=== PATIENT | female | born 1985 | race American Indian/Alaskan Native ===

== ENCOUNTER 2018-04-25 09:44 | Emergency (ER) | payer MEDICAID ==
[~2018-04-25] VITALS: Ht 160 cm; Wt 86.2 kg
[~2018-04-25 09:44] MED LIST: BUSP15TA14 PO; DICY10CA88 PO; HYDR-4383 PO; HYDR1TAB69 PO; IBUP-1985 PO; ONDA4TAB6 PO; ONDA8TAB13 PO
[2018-04-25] MEDS ORDERED: haloperidol 5mg tablet PO ONE (10:00)
[2018-04-25] MEDS ORDERED: LORazepam 1 MG tablet PO ONE ×2 (10:00→19:35)
[2018-04-25] MEDS: benztropine 1mg tablet PO SCH (10:05)
[2018-04-25 10:27] LABS: BASOPHILS % (AUTO) 0.4 % (0-1); EOSINOPHILS # (AUTO) 0.2 X10'3 (0-0.9); EOSINOPHILS % (AUTO) 2.5 % (0-6); HEMATOCRIT 42.8 % (35.0-45.0); HEMOGLOBIN 14.5 g/dl (12.0-16.0); LYMPHOCYTES # (AUTO) 1.6 X10'3 (1.1-4.8); LYMPHOCYTES % (AUTO) 22.2 % (21-51); MEAN CORPUSCULAR HEMOGLOBIN 29.2 PG (27.0-31.0); MEAN CORPUSCULAR VOLUME 86.1 FL (78-98); MEAN PLATELET VOLUME 7.7 FL (7.4-10.4); MONOCYTES # (AUTO) 0.5 X10'3 (0-0.9); MONOCYTES % (AUTO) 6.6 % (2-12); NEUTROPHILS # (AUTO) 4.8 X10'3 (1.8-7.7); NEUTROPHILS % (AUTO) 68.3 % (42-75); PLATELET COUNT 259 X10'3 (140-440); RED BLOOD COUNT 4.97 X10'6 (4.20-5.60); RED CELL DISTRIBUTION WIDTH 15.1 % (11.5-14.5)
[2018-04-25 10:29] LABS: URINE HCG NEGATIVE (NEG)
[2018-04-25 10:46] LABS: URINE AMPHETAMINE SCREEN POSITIVE (Neg); URINE BARBITUATE SCREEN NEGATIVE (Neg); URINE BENZODIAZEPINES SCREEN POSITIVE (Neg); URINE CANNABINOID SCREEN NEGATIVE (Neg); URINE COCAINE SCREEN NEGATIVE (Neg); URINE METHADONE SCREEN NEGATIVE (Neg); URINE OPIATE SCREEN NEGATIVE (Neg); URINE PHENCYCLIDINE SCREEN NEGATIVE (Neg)
[2018-04-25 10:49] LABS: ALANINE AMINOTRANSFERASE 130 U/L (12-78); ALBUMIN 3.6 G/DL (3.4-5.0); ALKALINE PHOSPHATASE 89 IU/L (46-116); ANION GAP 9 (8-16); ASPARTATE AMINO TRANSFERASE 111 U/L (10-37); BILIRUBIN,TOTAL 0.5 MG/DL (0.1-1.0); BLOOD UREA NITROGEN 12 MG/DL (7-18); BUN/CREATININE RATIO 18.2 (6.6-38.0); CALCIUM 8.5 MG/DL (8.5-10.1); CHLORIDE 102 MMOL/L (99-107); CREATININE 0.66 MG/DL (0.40-0.90); GLUCOSE 68 MG/DL (70-104); POTASSIUM 3.6 MMOL/L (3.5-5.1); SODIUM 138 MMOL/L (135-145); TOTAL CARBON DIOXIDE 27.4 MMOL/L (24-32); TOTAL PROTEIN 7.3 G/DL (6.4-8.2); eGFR > 90 ML/MIN
[2018-04-25 10:50] LABS: ETHANOL < 0.010 GM/DL (0.0-0.010)
[2018-04-25] MEDS ORDERED: OLAN5TAB3 PO (11:09)
[2018-04-25] MEDS ORDERED: LORA0.5T PO (11:09)
[2018-04-25] MEDS ORDERED: DIAZ5TAB PO (11:09)
[2018-04-25] MEDS ORDERED: OLANZapine 2.5MG tablet PO STA (19:32)
[2018-04-25 20:42] LABS: CLARITY,URINE TURBID (Clear); COLOR,URINE YELLOW (Yellow); GLUCOSE, URINE 100 mg/dl (Neg); KETONES,URINE 40 mg/dl (Neg); LEUKOCYTE ESTERASE ,URINE NEGATIVE (Neg); NITRITES, URINE NEGATIVE (Neg); OCCULT BLOOD,URINE TRACE-INTACT (Neg); PROTEIN,URINE NEGATIVE (Neg)
[2018-04-25 20:44] LABS: UA COLLECTION TYPE CLN CATCH MIDSTREAM
[2018-04-25 20:59] LABS: BACTERIA,URINE NONE SEEN /HPF (Neg); RBC,URINE 0-2 /HPF (0-2); WBC,URINE 0-4 /HPF (0-4)
[2018-04-25 21:00] LABS: AMORPHOUS URATES 3+; MUCUS STRANDS NONE SEEN /LPF (Neg); SQUAMOUS EPITHELIAL CELL,UR FEW /LPF (FEW)
[2018-04-26] MEDS ORDERED: diphenhydrAMINE 25mg capsule PO ONE (09:05)
[2018-04-26] MEDS ORDERED: haloperidol 5mg tablet PO ONE (09:05)
[2018-04-26] MEDS ORDERED: LORazepam 1 MG tablet PO ONE (09:10)
[2018-04-26] MEDS: benztropine 1mg tablet PO SCH (10:22)
[2018-04-26 10:29] VITALS: BP 103/68
== END 2018-04-26 11:44 ==
LOC: ER 09:44
DX: F31.89 Other bipolar disorder (principal); F28 Other psychotic disorder not due to a substance or known physiological condition; R45.851 Suicidal ideations; R45.1 Restlessness and agitation; G89.29 Other chronic pain; F15.90 Other stimulant use, unspecified, uncomplicated; Z88.8 Allergy status to other drugs, medicaments and biological substances
CPT/HCPCS: 36415; 80053; 80305; 80320; 81001; 81025; 84443; 85025; 99285; Q0163

== ENCOUNTER 2019-12-18 11:47 | Emergency (ER) | payer MEDICAID ==
[~2019-12-18] VITALS: Ht 160 cm; Wt 83.3 kg
[~2019-12-18 11:47] MED LIST changes: -BUSP15TA14 PO; +DIAZ5TAB PO; -DICY10CA88 PO; -HYDR-4383 PO; -HYDR1TAB69 PO; -IBUP-1985 PO; +LORA0.5T PO; +OLAN5TAB3 PO; -ONDA4TAB6 PO; -ONDA8TAB13 PO
--- NOTE | 2019-12-18 12:40 | NUR ---
PT ASKED "CAN YOU FIND ME A PLACE TO STAY?" PROVIDED [employer] DOCUMENT AND RECOMMENDED PT GO TO [facility] BEFORE 1700 TODAY FOR MEAL AND POSSIBLE LODGINGS.
[2019-12-18] MEDS ORDERED: IBUP-1986 PO (13:29)
[2019-12-18] MEDS ORDERED: ONDA4TAB6 PO (13:29)
[2019-12-18 13:39] VITALS: BP 112/73
== END 2019-12-18 13:41 | disposition home or self-care (01) ==
LOC: ER 11:48
DX: M54.6 Pain in thoracic spine (principal); R11.0 Nausea; G89.29 Other chronic pain; F31.9 Bipolar disorder, unspecified; F17.200 Nicotine dependence, unspecified, uncomplicated; F12.90 Cannabis use, unspecified, uncomplicated; F15.90 Other stimulant use, unspecified, uncomplicated; Z72.89 Other problems related to lifestyle; Z88.8 Allergy status to other drugs, medicaments and biological substances; Z79.899 Other long term (current) drug therapy
CPT/HCPCS: 99283

== ENCOUNTER 2019-12-20 00:18 | Emergency (ER) | payer MEDICAID ==
[~2019-12-20] VITALS: Ht 160 cm; Wt 80.0 kg
[~2019-12-20 00:18] MED LIST changes: +IBUP-1986 PO; +ONDA4TAB6 PO
[2019-12-20 00:36] VITALS: BP 120/84
[2019-12-20] MEDS ORDERED: ondansetron 4mg rapidly disintigrating tab PO ONE (01:00)
== END 2019-12-20 01:19 | disposition home or self-care (01) ==
LOC: ER 00:18
DX: R11.0 Nausea (principal); R44.3 Hallucinations, unspecified; G89.29 Other chronic pain; F31.9 Bipolar disorder, unspecified; F12.90 Cannabis use, unspecified, uncomplicated; F15.90 Other stimulant use, unspecified, uncomplicated; F11.90 Opioid use, unspecified, uncomplicated; Z88.8 Allergy status to other drugs, medicaments and biological substances; Z79.899 Other long term (current) drug therapy
CPT/HCPCS: 99283

== ENCOUNTER 2019-12-21 15:59 | Emergency (ER) | payer MEDICAID ==
[~2019-12-21] VITALS: Ht 160 cm; Wt 80.0 kg
[2019-12-21] MEDS ORDERED: ondansetron 4mg rapidly disintigrating tab PO ONE (16:55)
[2019-12-21] MEDS ORDERED: ketorolac trometh. 30mg/ml inj. IM ONE (16:55)
[2019-12-21 17:32] VITALS: BP 116/85
== END 2019-12-21 17:30 | disposition home or self-care (01) ==
LOC: ER 16:00
DX: R11.0 Nausea (principal); G89.29 Other chronic pain; M54.9 Dorsalgia, unspecified; F31.9 Bipolar disorder, unspecified; F12.90 Cannabis use, unspecified, uncomplicated; F15.90 Other stimulant use, unspecified, uncomplicated; F11.90 Opioid use, unspecified, uncomplicated; Z88.8 Allergy status to other drugs, medicaments and biological substances; Z79.899 Other long term (current) drug therapy
CPT/HCPCS: 96372; 99284; J1885

== ENCOUNTER 2021-12-11 00:08 | Inpatient (IN) | payer MEDICAID ==
[~2021-12-11] VITALS: Ht 160 cm; Wt 72.9 kg
[~2021-12-11 00:08] MED LIST changes: +NO HOME MEDS
[2021-12-11] MEDS ORDERED: NO HOME MEDS (00:54)
[2021-12-11 01:12] LABS: BASOPHILS % (AUTO) 0.8 % (0-1); EOSINOPHILS % (AUTO) 1.8 % (0-6); HEMATOCRIT 38.4 % (35.0-45.0); HEMOGLOBIN 13.1 g/dl (12.0-16.0); LYMPHOCYTES # (AUTO) 3.5 X10'3 (1.1-4.8); LYMPHOCYTES % (AUTO) 38.9 % (21-51); MEAN CORPUSCULAR HEMOGLOBIN 28.8 PG (27.0-31.0); MEAN CORPUSCULAR HGB CONC 34.1 g/dL (33.0-36.5); MEAN CORPUSCULAR VOLUME 84.5 FL (78-98); MEAN PLATELET VOLUME 7.9 FL (7.4-10.4); MONOCYTES # (AUTO) 0.7 X10'3 (0-0.9); MONOCYTES % (AUTO) 7.7 % (2-12); NEUTROPHILS # (AUTO) 4.5 X10'3 (1.8-7.7); NEUTROPHILS % (AUTO) 50.8 % (42-75); PLATELET COUNT 301 X10'3 (140-440); RED BLOOD COUNT 4.55 X10'6 (4.20-5.60); RED CELL DISTRIBUTION WIDTH 14.1 % (11.5-14.5); WHITE BLOOD COUNT 8.9 X10'3 (4.5-11.0)
[2021-12-11 01:13] LABS: BASOPHILS # (AUTO) 0.1 X10'3 (0-0.2); EOSINOPHILS # (AUTO) 0.2 X10'3 (0-0.9)
[2021-12-11 01:23] LABS: ALANINE AMINOTRANSFERASE 21 U/L (12-78); ALBUMIN 3.4 G/DL (3.4-5.0); ALBUMIN/GLOBULIN RATIO 1.1 (1.1-1.5); ALKALINE PHOSPHATASE 93 IU/L (46-116); ANION GAP 13 (8-16); ASPARTATE AMINO TRANSFERASE 12 U/L (10-37); BILIRUBIN,TOTAL 0.2 MG/DL (0.1-1.0); BLOOD UREA NITROGEN 16 MG/DL (7-18); BUN/CREATININE RATIO 22.5 (6.6-38.0); CALCIUM 8.5 MG/DL (8.5-10.1); CHLORIDE 109 MMOL/L (99-107); CREATININE 0.71 MG/DL (0.40-0.90); ETHANOL < 0.010 GM/DL (0.0-0.010); GLUCOSE 84 MG/DL (70-104); POTASSIUM 3.6 MMOL/L (3.5-5.1); SODIUM 144 MMOL/L (135-145); TOTAL CARBON DIOXIDE 22.1 MMOL/L (24-32); TOTAL PROTEIN 6.6 G/DL (6.4-8.2); eGFR > 90 ML/MIN
[2021-12-11 01:49] LABS: ACETAMINOPHEN < 2.0 UG/ML (10-30)
--- NOTE | 2021-12-11 02:59 | NUR ---
Patient brought to room 22 from room 14.
--- NOTE | 2021-12-11 03:40 | NUR ---
Dr. Collins here to see patient, but she would not cooperate.
--- NOTE | 2021-12-11 04:30 | NUR ---
Patient is asleep in supine position. RR even and unlabored. No s/sx of distress.
--- NOTE | 2021-12-11 08:49 | NUR ---
urine sent to lab
[2021-12-11 09:04] LABS: URINE HCG NEGATIVE (NEG)
[2021-12-11 09:13] LABS: URINE AMPHETAMINE SCREEN POSITIVE (Neg); URINE BARBITUATE SCREEN NEGATIVE (Neg); URINE BENZODIAZEPINES SCREEN NEGATIVE (Neg); URINE CANNABINOID SCREEN POSITIVE (Neg); URINE COCAINE SCREEN NEGATIVE (Neg); URINE METHADONE SCREEN NEGATIVE (Neg); URINE OPIATE SCREEN NEGATIVE (Neg); URINE PHENCYCLIDINE SCREEN NEGATIVE (Neg)
[2021-12-11] MEDS ORDERED: magnesium hydroxide 30ml (MOM) UD suspension PO PRN (12:10)
[2021-12-11] MEDS ORDERED: loperamide 2mg capsule PO PRN (12:10)
[2021-12-11] MEDS ORDERED: diphenhydrAMINE 25mg capsule PO ONE (13:05)
[2021-12-11] MEDS ORDERED: LORazepam 1 MG tablet PO ONE (13:05)
[2021-12-11] MEDS ORDERED: haloperidol 5mg tablet PO ONE (13:05)
--- NOTE | 2021-12-11 13:52 | NUR ---
Admit note: [facility]150 for gravely disabled from our ER at 1143. Pt reports suicidal thoughts, off her psychiatric meds, requests dual diagnosis treatment. She is unable to report viable plan for food, clothing and detention. Pt has history of Depression, Schizophrenia, Bipolar, anxiety.
--- NOTE | 2021-12-11 17:53 | NUR ---
Pt came onto the unit angry. She began banging her head on the wall after lunch. Pt asked for something to help her calm down making it difficult to finish her admit. She has been sleeping on and off since 1400.
[2021-12-11 20:00] VITALS: BP 126/68
--- NOTE | 2021-12-12 05:48 | NUR ---
Nursing Progress Note: Genoveva Problem: Pt admitted to [facility] [facility] today on 5150 for gravely disabled from our ER at 1143. Pt reports suicidal thoughts, off her psychiatric meds, requests dual diagnosis treatment. She is unable to report viable plan for food, clothing and half-way. Pt has history of Depression, Schizophrenia, Bipolar, anxiety. Intervention: Medication given as ordered. Provided with a safe and therapeutic environment, clear communication, active listening and positive encouragement. Response: Pt has been sleeping throughout the shift in her room. She refused to go to the main dining room for snack. And asked to be left alone during assessment. She remained in her room and slept on and off throughout the night. Plan: Patient continues to require crisis interruption and stabilization with medication management and monitoring in a safe and therapeutic environment.
[2021-12-12 08:00] VITALS: BP 92/55
[2021-12-12] MEDS: nicotine 21mg patch - 24 hr TD SCH (08:00)
[2021-12-12 09:58] LABS: HEMOGLOBIN A1C 4.9 % (4.5-6.2)
[2021-12-12 10:03] LABS: CHOL/HDL RATIO 3.6 (0.00-4.99); CHOLESTEROL 142 MG/DL (0-200); HDL CHOLESTEROL 39 MG/DL (35-60); LDL CHOLESTEROL 88 MG/DL (50-100); TRIGLYCERIDES 109 MG/DL (20-135)
[2021-12-12] MEDS: NICOTINE POLACRILEX 2 MG LOZENGE BC PRN ×2 (12:54→17:30)
[2021-12-12] MEDS: acetaminophen 325mg tablet PO PRN (13:07)
--- NOTE | 2021-12-12 15:31 | NUR ---
Nursing Progress Note: Problem : Pt admitted to [place] [facility] on a 5150 for DTS. Pt reports suicidal thoughts, is off her psychiatric meds, and requests dual diagnosis treatment. She is unable to report viable plan for food, clothing and halfway. Pt has history of Depression, Schizophrenia, Bipolar, anxiety. Interventions : Introduced self and established rapport, maintained a safe and supportive environment, provided clear and simple instructions, attempted to orient to reality, provided active listening and positive encouragement, reassured pt. of her safety on the unit, and maintained Q 15m min safety checks. Pt. appears to be internally preoccupied and makes delusional statements at intervals. She reports ongoing S/I without a current plan. Response : Received pt. sleeping in bed at the beginning of the shift, she was awoken to obtain ordered labs and vital signs, however refused both. Pt. became irritable stating, "You guys have been depriving me of food!" "She then returned back to sleep. Pt. was later awoken for breakfast, however refused and continued to isolate in bed. Later in the day, pt. did accept snack, and allowed her labs and V/S to be obtained. Pt. appears to be internally preoccupied AEB observed to be whispering to herself. Also, during lab draw pt. stated, "I'll do it for the girl who needs the blood because she's on her period." Pt. does not have a roommate at this time and it is unclear to which girl she was referring. Pt. then stated in a disorganized and possibly delusional manner, "It[facility] from [facility] or [facility]." Pt. did attend lunch, and 1:1 was completed later at bedside, pt. reports on going S/I without a current plan . She requested PRN Tylenol for bilateral foot pain, and medication was administered with effectiveness. Pt. remained withdrawn in bed napping throughout much of the day. At approximately 1600 she reported increased anxiety and requested Zyprexa, this was endorsed to KATHI Harvey who will order medication. Plan : Pt. requires interruption of current crisis and a safe and supportive environment.
[2021-12-12] MEDS: OLANZapine 5mg rapidly disint. tablet PO PRN (16:47)
--- NOTE | 2021-12-12 16:51 | NUR ---
PRNs Administered: Zyprexa Zydis 5mg Interventions Offered: Pt. reported anxiety and stated, "There's a serpent in my bed!" She was provided with active listening and positive encouragement along with Zyprexa Zydis. Response to Medication: Pt. thanked this senior copywriter, will continue to monitor.
[2021-12-12] MEDS: olanzapine 10mg tablet PO SCH (19:27)
[2021-12-12 20:00] VITALS: BP 114/78
--- NOTE | 2021-12-13 03:18 | NUR ---
Nursing Progress Note: Genoveva Problem: Pt admitted to [place] [facility] today on 5150 for gravely disabled from our ER at 1143. Pt reports suicidal thoughts, off her psychiatric meds, requests dual diagnosis treatment. She is unable to report viable plan for food, clothing and custodial. Pt has history of Depression, Schizophrenia, Bipolar, anxiety. Intervention: Medication given as ordered. Provided with a safe and therapeutic environment, clear communication, active listening and positive encouragement. Response: Pt has been very pleasant and cooperative. She was asleep in her room at the beginning of the shift but then woke up to eat dinner, at that time her tray was brought to her, she ate, and took pm medicines with no problem and allowed an assessment. She then went back to sleep. She woke up again a few hours later to ask for a snack, afterwards remained in her room and slept on and off throughout the night. Plan: Patient continues to require crisis interruption and stabilization with medication management and monitoring in a safe and therapeutic environment.
[2021-12-13] MEDS: OLANZAPINE 5 MG TABLET PO SCH (07:16)
[2021-12-13] MEDS: nicotine 21mg patch - 24 hr TD SCH (07:17)
[2021-12-13] MEDS: acetaminophen 325mg tablet PO PRN ×2 (07:17→19:52)
[2021-12-13 07:51] VITALS: BP 110/80
--- NOTE | 2021-12-13 07:56 | NUR ---
PRNs Administered: Tylenol 650mg Interventions Offered: Pt. c/o a headache, she stated in a delusional manner, "They are pulling on my hair." Pt. continues to be the only one in her room and does not have a room mate at this time. Response to Medication: Pt. thanked this policy writer for the medication and returned back to sleep.
[2021-12-13] MEDS: OLANZapine 5mg rapidly disint. tablet PO PRN (15:36)
--- NOTE | 2021-12-13 15:37 | NUR ---
PRNs Administered: Zyprexa Zydis Interventions Offered: Pt. reported anxiety r/t command A/FONSECA and visual hallucinations. She was provided with a calm and quiet environment and PRN medication. Response to Medication: Pt. thanked this verse writer for the medication, will continue to monitor.
--- NOTE | 2021-12-13 17:23 | NUR ---
Nursing Progress Note: Problem : Pt admitted to [place] [facility] on a 5150 for DTS. Pt reports suicidal thoughts, is off her psychiatric meds, and requests dual diagnosis treatment. She is unable to report viable plan for food, clothing and long term. Pt has history of Depression, Schizophrenia, Bipolar, anxiety. Pt. is currently reporting A/V/FONSECA and delusions. She also reports S/I with no current plan. Interventions : Maintained a safe and supportive environment, provided clear and simple instructions, attempted to orient to reality, provided active listening and positive encouragement, reassured pt. of her safety on the unit, and maintained Q 15m min safety checks. Response : Received pt. sleeping in bed at the beginning of the shift, she was awoken for breakfast and was compliant with V/S, exhibiting no irritably this shift. 1:1 was completed at bedside and pt. reports command A/FONSECA at intervals and V/FONSECA. When further questioned regarding her V/FONSECA, pt. states, "I saw an iguana by my bed getting into the garbage can." Pt. also reports intermittent S/I, but denies any current plan and is able to contract for safety on the unit. Pt. again isolates in bed throughout much of the day, napping intermittently. Plan : Per KATHI Harvey, pt. requires medication adjustments and a safe and supportive environment.
[2021-12-13] MEDS: olanzapine 10mg tablet PO SCH (19:48)
[2021-12-13 20:00] VITALS: BP 105/69
[2021-12-13] MEDS: mupirocin 2% ointment 22GM TP SCH (21:00)
[2021-12-14] MEDS: acetaminophen 325mg tablet PO PRN ×2 (04:31→13:00)
--- NOTE | 2021-12-14 05:25 | NUR ---
Nursing Progress Note: Genoveva Problem: Pt admitted to [facility] today on 5150 for gravely disabled from our ER at 1143. Pt reports suicidal thoughts, off her psychiatric meds, requests dual diagnosis treatment. She is unable to report viable plan for food, clothing and fci. Pt has history of Depression, Schizophrenia, Bipolar, anxiety. Intervention: Medication given as ordered. Provided with a safe and therapeutic environment, clear communication, active listening and positive encouragement. Response: Pt has been very pleasant and cooperative. She was asleep in her room at the beginning of the shift but then woke and allowed an assessment. She then went back to sleep. She woke up again a few hours later to ask for a snack, afterwards remained in her room and slept on and off throughout the night. She was given PRN Tylenol x2 for a headache. Plan: Patient continues to require crisis interruption and stabilization with medication management and monitoring in a safe and therapeutic environment.
[2021-12-14 08:00] VITALS: BP 114/77
[2021-12-14] MEDS: nicotine 21mg patch - 24 hr TD SCH ×2 (08:00→08:52)
[2021-12-14] MEDS: mupirocin 2% ointment 22GM TP SCH ×3 (08:52→20:44)
[2021-12-14] MEDS: OLANZAPINE 5 MG TABLET PO SCH (08:52)
--- NOTE | 2021-12-14 13:04 | NUR ---
PRNs Administered: Tylenol 650mg Interventions Offered: Pt. c/o a headache and requested PRN Tylenol. She was provided with a quiet environment free from stimulation. Response to Medication: Pt. thanked this web content writer for the medication and returned back to sleep.
--- NOTE | 2021-12-14 15:15 | NUR ---
Nursing Progress Note: Problem : Pt admitted to [place] on a 5150 for DTS. Pt reports suicidal thoughts, is off her psychiatric meds, and requests dual diagnosis treatment. She is unable to report viable plan for food, clothing and chcf. Pt has history of Depression, Schizophrenia, Bipolar, anxiety. Pt. continues to report command A/FONSECA. She also reports S/I with no current plan. Interventions : Maintained a safe and supportive environment, provided clear and simple instructions, attempted to orient to reality, provided active listening and positive encouragement, reassured pt. of her safety on the unit, encouraged performance of ADLs, and maintained Q 15m min safety checks. Response : Received pt. sleeping in bed at the beginning of the shift, she was awoken for breakfast and afterwards returned back to bed as is her routine. 1:1 was completed at bedside, pt. continues to present with a constricted affect and responds minimally to direct questions only. She reports ongoing S/I without any current plan. When questioned by this life underwriter regarding the cause for her S/I, pt. stated, "I miss my kids." Pt. also reports ongoing command A/FONSECA, but is able to contract for safety. She denies any V/FONSECA and does not make any delusional statements this shift. Pt. continues to isolate in bed napping throughout much of the day, she gets up to attend meals and snacks. Plan : Per KATHI Bates pt. continues to require medication adjustments and a safe and supportive environment. She does not have a safety plan for discharge.
[2021-12-14] MEDS: OLANZapine 5mg rapidly disint. tablet PO PRN (17:13)
[2021-12-14] MEDS: mag hydrox/Alum hydrox/simeth 30ml oral suspension PO PRN (17:19)
--- NOTE | 2021-12-14 17:22 | NUR ---
PRNs Administered: Zyprexa Zydis and Maalox Interventions Offered: Pt. reported anxiety and nausea. She stated in a delusional manner, "There's an iguana in my sight and I feel like it's inside me. It's making me sick." This ad copy writer provided active listening and positive encouragement. Response to Medication: Pt. thanked this ad copy writer for the medication, will continue to monitor.
[2021-12-14 20:00] VITALS: BP 100/69
[2021-12-14] MEDS: olanzapine 10mg tablet PO SCH (20:43)
--- NOTE | 2021-12-15 05:24 | NUR ---
pt sleepy when staff arrived. did get up for snack and medications. took without incident. went back to bed. appeared to be sleeping comfortably during each rounding. pt didn't interact with staff and just wanted to sleep.
--- NOTE | 2021-12-15 07:41 | NUR ---
Initial: Pt admitted w/ schizophrenia per EMR. Currently on Regular diet w/ avg intake 75% of meals and participates in some snacks per documentation. Overall meeting est nutrient needs at this time. LBM 12/14 w/ PRN bowel care available. No nutrition intervention implemented at this time, will continue to monitor. Recs; 1. Continue Regular diet as tolerated 2. Bowel care PRN 3. Weekly wts Addendum: 12/15/21 at [address] Amended: Links added.
[2021-12-15] MEDS: mupirocin 2% ointment 22GM TP SCH ×3 (08:00→20:55)
[2021-12-15] MEDS: nicotine 21mg patch - 24 hr TD SCH (09:00)
[2021-12-15] MEDS: OLANZAPINE 5 MG TABLET PO SCH (09:53)
[2021-12-15] MEDS: OLANZapine 5mg rapidly disint. tablet PO PRN (13:15)
[2021-12-15] MEDS: acetaminophen 325mg tablet PO PRN ×2 (15:32→20:55)
--- NOTE | 2021-12-15 16:00 | NUR ---
Nursing Progress Note Problem : Pt admitted to [place] [facility] on a 5150 for DTS. Pt reports suicidal thoughts, is off her psychiatric meds, and requests dual diagnosis treatment. She is unable to report viable plan for food, clothing and senior living. Pt has history of Depression, Schizophrenia, Bipolar, anxiety.Pt reports S/I with no current plan and continued A/VH. Interventions : Maintained a safe and supportive environment, provided clear and simple instructions, attempted to orient to reality, provided active listening and positive encouragement, reassured pt. of her safety on the unit, encouraged performance of ADLs, and maintained Q 15m min safety checks. Response : Received pt. sleeping in bed w/o distress at the beginning of the shift. Pt refuised AM vitals, but did wake for breakfast and returned to bed. Pt took AM meds w/o issue. Pt is withdrawn and isolative, yet pleasant when approached and appreciative of care. Assessments at bedside completed with cooperation and minimal interaction from Pt. C/O abdominal pain and was given Tylenol and took a shower with good effect. Pt smiling in afternoon, although remains in bed. Pt attended meals and ate well. Plan : Per KATHI Bates pt. continues to require medication adjustments and a safe and supportive environment. She does not have a safety plan for discharge.
[2021-12-15 20:02] VITALS: BP 104/72
[2021-12-15] MEDS: olanzapine 10mg tablet PO SCH (20:54)
--- NOTE | 2021-12-16 06:08 | NUR ---
Nursing Progress Note: Problem : Pt admitted from [facility] in [place] on LPS conservatorship. Pt has delusions she is and has snakes in her bed, along with AHs. Pts AHs are people from [facility] telling her that they are going to come after her. Pt. continues to report some ongoing AHs and make delusional statements. Interventions : Maintained a safe and supportive environment, provided clear and simple instructions, ensured contract for safety, attempted to orient to reality, provided active listening and positive encouragement, monitored behaviors and provided redirection as needed, and maintained Q 15min safety checks. Response : Received pt. sleeping in bed w/o distress at the beginning of the shift. Pt awoke later and was cooperative with vitals and then actually ventured out to the recreational room and was visiting with her peers. At one time, she came outside of the charting room and announced to me that she could hear her baby crying and then went back into the rec room. She did not take any snacks at snack time as was already back in bed resting. When questioned about seeing/hearing things, she stated it was her middle child, she has 3. I asked where they were and she reeled off alot of different places. Plan : Per Dr. Simpson, pt. is currently at baseline and continues to require a safe and supportive environment. She will be transferred to an IMD.
[2021-12-16] MEDS: OLANZAPINE 5 MG TABLET PO SCH (10:34)
[2021-12-16] MEDS: nicotine 21mg patch - 24 hr TD SCH (10:35)
[2021-12-16] MEDS: mupirocin 2% ointment 22GM TP SCH ×3 (10:35→21:00)
--- NOTE | 2021-12-16 14:14 | NUR ---
5250 [address] FOR GRAVE DISABILITY SANDER Rodas
[2021-12-16] MEDS: OLANZapine 5mg rapidly disint. tablet PO PRN (15:50)
--- NOTE | 2021-12-16 17:28 | NUR ---
Nursing Progress Note Problem : Pt admitted to [place] [facility] on a 5150 for DTS. Pt reports suicidal thoughts, is off her psychiatric meds, and requests dual diagnosis treatment. She is unable to report viable plan for food, clothing and retirement. Pt has history of Depression, Schizophrenia, Bipolar, anxiety.Pt reports S/I with no current plan and continued A/VH. Interventions : Maintained a safe and supportive environment, provided clear and simple instructions, attempted to orient to reality, provided active listening and positive encouragement, reassured pt. of her safety on the unit, encouraged performance of ADLs, and maintained Q 15m min safety checks. Response : Patient was asleep at change of shift and up for a late breakfast. Then back to sleep. Patient has Impetigo in/on her nose and the corner of her mouth. Patient slept most of the day. Patient c/o hearing voices and fearful of them. They are telling her to Kill Herself. Patient is disorganized when speaking of what she is fearful of. RN gave patient an Olanzapine for her anxiety. Patient was given Tylenol for her nose pain. Patient started c/o abdominal pain and crying. Right lower quadrant. Patient went back to her bed and fell asleep. Patient is now up and eating dinner. Probable gas pain. Patient is calm Plan : Per KATHI Bates pt. continues to require medication adjustments and a safe and supportive environment. She does not have a safety plan for discharge.
[2021-12-16 19:25] VITALS: BP 94/64
[2021-12-16] MEDS: olanzapine 10mg tablet PO SCH (20:11)
--- NOTE | 2021-12-16 20:15 | NUR ---
removed nicotine patch
--- NOTE | 2021-12-17 01:07 | NUR ---
Nursing Progress Note Problem : Pt admitted to [facility] on a 5150 for DTS. Pt reports suicidal thoughts, is off her psychiatric meds, and requests dual diagnosis treatment. She is unable to report viable plan for food, clothing and long-term. Pt has history of Depression, Schizophrenia, Bipolar, anxiety.Pt reports S/I with no current plan and continued A/VH. Interventions : Maintained a safe and supportive environment, provided clear and simple instructions, attempted to orient to reality, provided active listening and positive encouragement, reassured pt. of her safety on the unit, encouraged performance of ADLs, and maintained Q 15m min safety checks. Response : Patient was asleep at change of shift. Pt woke for HS snacks and spent time talking pleasantly with her roommate. Pt c/o cramping pain in stomach states "it's because my PCOS." Pt states warm water bottles help. Pt also report constipation. Pt was given prune juice. Patient has Impetigo in/on her nose and the corner of her mouth. Pt reports a/h, and states 'just voices saying they're going to kill me." Pt took HS meds. Pt was asleep when pharmacy brought up ointment for her nose. Plan : Per KATHI Bates pt. continues to require medication adjustments and a safe and supportive environment. She does not have a safety plan for discharge.
[2021-12-17] MEDS: nicotine 21mg patch - 24 hr TD SCH (08:00)
[2021-12-17] MEDS: PALIPERIDONE 3 MG TAB.ER.24 PO SCH (09:17)
[2021-12-17] MEDS: OLANZAPINE 5 MG TABLET PO SCH (09:18)
[2021-12-17] MEDS: acetaminophen 325mg tablet PO PRN ×2 (09:27→15:44)
[2021-12-17] MEDS: mupirocin 2% ointment 22GM TP SCH ×3 (09:28→19:55)
[2021-12-17] MEDS: OLANZapine 5mg rapidly disint. tablet PO PRN (15:39)
--- NOTE | 2021-12-17 17:33 | NUR ---
Nursing Progress Note Problem : Pt admitted to [place] on a 5150 for DTS. Pt reports suicidal thoughts, is off her psychiatric meds, and requests dual diagnosis treatment. She is unable to report viable plan for food, clothing and care home. Pt has history of Depression, Schizophrenia, Bipolar, anxiety.Pt reports S/I with no current plan and continued A/VH. Interventions : Maintained a safe and supportive environment, provided clear and simple instructions, attempted to orient to reality, provided active listening and positive encouragement, reassured pt. of her safety on the unit, encouraged performance of ADLs, and maintained Q 15m min safety checks. Response : Patient was asleep at change of shift and up for breakfast. A&O X4. Pt. still experiencing SI, stating her voices tell her to "kill evil one." She states she has a serpent running through her veins and it insists she kill herself. PRN zyprexa zydis administered for agitation/anxiety from her voices. Tx in place for impetigo to sore on corner of mouth and nose. PRN Tylenol administered for pain X2. Pt spent majority of shift isolating in her bedroom. Plan : Per KATHI Bates pt. continues to require medication adjustments and a safe and supportive environment. She does not have a safety plan for discharge.
[2021-12-17] MEDS: olanzapine 10mg tablet PO SCH (19:55)
[2021-12-17 20:00] VITALS: BP 106/64
--- NOTE | 2021-12-18 02:39 | NUR ---
Nursing Progress Note: Problem : Pt admitted to [place] [facility] on a 5150 for DTS. Pt reports suicidal thoughts, is off her psychiatric meds, and requests dual diagnosis treatment. She is unable to report viable plan for food, clothing and long-term. Pt has history of Depression, Schizophrenia, Bipolar, anxiety.Pt reports S/I with no current plan and continued A/VH. Interventions : Maintained a safe and supportive environment, provided clear and simple instructions, attempted to orient to reality, provided active listening and positive encouragement, reassured pt. of her safety on the unit, encouraged performance of ADLs, and maintained Q 15m min safety checks. Response : Patient isolated in her room all night. She reports that she still hears voices, but they are not commanding right now. "They are evil and want me to ." Asked if her medication is helping and she reponded, "a little." She had no behaviors tonight, and no yelling the voices. Patient was compliant with medications, and has been observed sleeping all night. Plan : Per KATHI Bates pt. continues to require medication adjustments and a safe and supportive environment. She does not have a safety plan for discharge.
[2021-12-18] MEDS: PALIPERIDONE 3 MG TAB.ER.24 PO SCH (07:38)
[2021-12-18] MEDS: OLANZAPINE 5 MG TABLET PO SCH (07:38)
[2021-12-18] MEDS: mupirocin 2% ointment 22GM TP SCH ×4 (07:39→20:46)
[2021-12-18] MEDS: nicotine 21mg patch - 24 hr TD SCH (07:39)
[2021-12-18] MEDS: acetaminophen 325mg tablet PO PRN ×2 (07:46→15:51)
[2021-12-18 08:00] VITALS: BP 90/52
[2021-12-18] MEDS: OLANZapine 5mg rapidly disint. tablet PO PRN (10:41)
--- NOTE | 2021-12-18 14:38 | NUR ---
PAGER ID: [phone] MESSAGE: [id number] Aly M: pt c/o nausea and pain. Tylenol given this AM with no effect. No nausea meds ordered. thank you, minnie
[2021-12-18] MEDS: mag hydrox/Alum hydrox/simeth 30ml oral suspension PO PRN (15:51)
--- NOTE | 2021-12-18 16:21 | NUR ---
Nursing Progress Note: Problem : Pt admitted to [facility] [place] [facility] on a 5150 for DTS. Pt reports suicidal thoughts, is off her psychiatric meds, and requests dual diagnosis treatment. She is unable to report viable plan for food, clothing and custodial. Pt has history of Depression, Schizophrenia, Bipolar, anxiety. Pt reports S/I with no current plan and continued A/VH. Interventions : Maintained a safe and supportive environment, provided clear and simple instructions, attempted to orient to reality, provided active listening and positive encouragement, reassured pt. of her safety on the unit, encouraged performance of ADLs, and maintained Q 15m min safety checks. Response: Patient seen in her room this AM and was taken her scheduled medications. She took all of these with no issues. Patient c/o toothache and was given PRN Tylenol. After breakfast she was c/o some anxiety and was given PRN Zyprexa, which was effective in calming her. Patient continued to complain of pain and nausea, hospitalist paged. No answer. Another PRN tylenol and maalox was given as requested by patient. Plan : Per KATHI Bates pt. continues to require medication adjustments and a safe and supportive environment. She does not have a safety plan for discharge.
[2021-12-18] MEDS: olanzapine 10mg tablet PO SCH (20:57)
--- NOTE | 2021-12-18 21:36 | NUR ---
Nursing Progress Note: Problem : Pt admitted to [place] on a 5150 for DTS. Pt reports suicidal thoughts, is off her psychiatric meds, and requests dual diagnosis treatment. She is unable to report viable plan for food, clothing and care home. Pt has history of Depression, Schizophrenia, Bipolar, anxiety. Pt reports S/I with no current plan and continued A/VH. Interventions : Maintained a safe and supportive environment, provided clear and simple instructions, attempted to orient to reality, provided active listening and positive encouragement, reassured pt. of her safety on the unit, encouraged performance of ADLs, and maintained Q 15m min safety checks. Response: pt was asleep in her room at change of shift, pt woke for HS meds and states that she had a good day. Pt is pleasant and smiling, requests crackers and milk to "help me sleep". Pt denies s/i, denies a/vh. Pt participates in assessment minimally, affect is bright,and goes back to sleep. Plan : Per KATHI Bates pt. continues to require medication adjustments and a safe and supportive environment. She does not have a safety plan for discharge.
[2021-12-19 07:07] VITALS: BP 94/65
[2021-12-19] MEDS: nicotine 21mg patch - 24 hr TD SCH (08:00)
[2021-12-19] MEDS: PALIPERIDONE 3 MG TAB.ER.24 PO SCH (08:29)
[2021-12-19] MEDS: OLANZAPINE 5 MG TABLET PO SCH (08:29)
--- NOTE | 2021-12-19 18:04 | NUR ---
Nursing Progress Note: Genoveva Problem: Pt admitted to [facility] for Behavioral health on a 5150 for DTS. Patient is unable to report viable plan for food, clothing and skilled nursing. Pt has history of Depression, Schizophrenia, Bipolar, anxiety. Pt reports S/I with no current plan and continued A/VH. Interventions: Maintained a safe and supportive environment, provided clear and simple instructions, attempted to orient to reality, provided active listening and positive encouragement, reassured pt. of her safety on the unit, encouraged performance of ADLs, and maintained Q 15m min safety checks. Response: Patient was received sleeping in her room at shift change. She awoke and joined in the group room for breakfast with peers. Patient was receptive to scheduled medications and 1:1 assessment. Patient refused her scheduled Nicotine patch this morning endorsing that it gives her bad dreams. Patient endorsed to this public relations writer that she will probably go to the [place] when she leaves d/t being homeless and having nowhere else to go. Patient reports SI with no plan. Patient unwilling to emphasize on feelings of SI. Patient endorses A/VH with no emphasis on what voices are saying, patient unwilling to engage in conversation. She was observed sleeping in her room the majority of the shift. Patient joined for meal and snack times in the group room with peers. Plan: Per KATHI Bates pt. continues to require medication adjustments and a safe and supportive environment. She does not have a safety plan for discharge.
[2021-12-19 20:00] VITALS: BP 99/63
[2021-12-19] MEDS: olanzapine 10mg tablet PO SCH (20:59)
--- NOTE | 2021-12-20 04:15 | NUR ---
Nursing Progress Note: Problem : Pt admitted to [facility] for Behavioral health on a 5150 for DTS. Pt reports suicidal thoughts, is off her psychiatric meds, and requests dual diagnosis treatment. She is unable to report viable plan for food, clothing and longterm. Pt has history of Depression, Schizophrenia, Bipolar, anxiety. Pt reports S/I with no current plan and continued A/VH. Interventions : Maintained a safe and supportive environment, provided clear and simple instructions, attempted to orient to reality, provided active listening and positive encouragement, reassured pt. of her safety on the unit, encouraged performance of ADLs, and maintained Q 15m min safety checks. Response: Pt was in bed asleep at change of shift and wok for vitals and PM medications. She did not attend snack hour. Pt is pleasant, but lethargic. She allowed a minimal assessment and then resorted back to sleeping. At about 1AM, came to nursing station and requested yogurt and orange juice. Patient then went back to sleep. Plan : Per KATHI Bates pt. continues to require medication adjustments and a safe and supportive environment. She does not have a safety plan for discharge.
[2021-12-20] MEDS: acetaminophen 325mg tablet PO PRN ×2 (06:56→14:18)
[2021-12-20 07:11] VITALS: BP 91/60
[2021-12-20] MEDS: PALIPERIDONE 3 MG TAB.ER.24 PO SCH (07:48)
[2021-12-20] MEDS: nicotine 21mg patch - 24 hr TD SCH (07:48)
[2021-12-20] MEDS: OLANZAPINE 5 MG TABLET PO SCH (07:48)
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
[2021-12-20] MEDS: OLANZapine 5mg rapidly disint. tablet PO PRN (09:18)
[2021-12-20] MEDS: NICOTINE POLACRILEX 2 MG LOZENGE BC PRN (09:19)
--- NOTE | 2021-12-20 10:00 | NUR ---
Pt. heard crying loudly in tv room, she c/o "being sick" and began running to her room and yelling loudly, and got in her bed yelling "I want to get out of here, you all are trying to poison me, Im not taking anymore medication from you" Help Desk Technician attempted assess pt. she reported RLQ area pain, and mentioned a snake. Pt. presents as labile, in less then five min pt. returned to nurses station clear eyed and calm and requested nicotine lozenge; PRN Zyprexa and elba. lozenge provided. Later pt. approached provider requesting [facility] for pain in her abdomen. reviewed previous documentation and last c/o pain was 12/18/21 abd. pain and nausea, hospitalist paged. Pt. approached mortgage underwriter at [phone] requested a juice and medicine for pain. No further PRN available; hospitalist paged. Pt. currently sitting in tv room drinking juice and watching tv.
[2021-12-20] MEDS: mag hydrox/Alum hydrox/simeth 30ml oral suspension PO PRN (14:18)
[2021-12-20] MEDS: naproxen sodium 220mg tablet PO SCH (15:53)
[2021-12-20] MEDS ORDERED: mupirocin 2% cream 15gm TP SCH (16:00)
[2021-12-20] MEDS: mupirocin 2% ointment 22GM TP SCH ×2 (16:09→21:02)
--- NOTE | 2021-12-20 17:00 | NUR ---
Nursing Progress Note: Genoveva Problem: Pt admitted to [facility] for [facility] on a 5150 for DTS. Patient is unable to report viable plan for food, clothing and intermediate. Pt has history of Depression, Schizophrenia, Bipolar, anxiety. Pt. presents as delusional and labile at times, and his anxious to get discharged. Pt. c/o pain to RLQ. Interventions: Maintained a safe and supportive environment, provided clear and simple instructions, attempted to orient to reality, provided active listening and positive encouragement, reassured pt. of her safety on the unit, encouraged performance of ADLs, and maintained Q 15m min safety checks. Response: Pt. is receptive to medication, 1:1 assessment completes at the bedside, she denies SI, HI, A/VH and reports she was admitted d/t I was suicidal and seeing things, I was real paranoid she has plans to discharge to the [facility] where she reports having [place] support. Pt. presents as fatigued and slept most of the morning, she later c/o FONSECA and received Tylenol. At approx. 1000 pt could be heard crying in the tv room, signwriter found "being sick" and began running to her room and yelling loudly, and got in her bed yelling "I want to get out of here, you all are trying to poison me, Im not taking any more medication from you" Polisher Balance Screwhead attempted assess pt. she reported RLQ area pain, and mentioned a snake. Pt. presents as labile, in less than five min pt. returned to nurses station clear eyed and calm and requested nicotine lozenge; PRN Zyprexa and nicotine lozenge provided. Later pt. approached provider requesting [place] for pain in her abdomen. PRN Tylenol and Maalox given for c/o nausea, pending provider assessment. N.O received for PRN Naproxen, routine Bactroban TP and RLQ pelvic ultra sound to be done this shift. Plan: Per KATHI Bates pt. continues to require medication adjustments and a safe and supportive environment. She does not have a safety plan for discharge.
[2021-12-20 19:26] VITALS: BP 102/67
[2021-12-20] MEDS: olanzapine 10mg tablet PO SCH (21:02)
--- NOTE | 2021-12-21 03:50 | NUR ---
Nursing Progress Note: Problem : Pt admitted to [facility] for Behavioral health on a 5150 for DTS. Pt reports suicidal thoughts, is off her psychiatric meds, and requests dual diagnosis treatment. She is unable to report viable plan for food, clothing and penitentiary. Pt has history of Depression, Schizophrenia, Bipolar, anxiety. Pt reports S/I with no current plan and continued A/VH. Interventions : Maintained a safe and supportive environment, provided clear and simple instructions, attempted to orient to reality, provided active listening and positive encouragement, reassured pt. of her safety on the unit, encouraged performance of ADLs, and maintained Q 15m min safety checks. Response: Pt was in bed asleep at change of shift and woke for PM medications. She did not attend snack hour. Pt is pleasant, but lethargic. She allowed a minimal assessment and then resorted back to sleeping. At about 9PM, she came to nursing station and requested string cheese and orange juice. Patient then went back to sleep. Plan : Per KATHI Bates pt. continues to require medication adjustments and a safe and supportive environment. She does not have a safety plan for discharge.'
--- NOTE | 2021-12-21 07:11 | NUR ---
Reassessment: Currently on Regular diet w/ avg intake 75% of meals and participates in some snacks per documentation. Overall meeting est nutrient needs at this time. [facility] 12/19 w/ PRN bowel care available. No nutrition intervention implemented at this time, will continue to monitor. Recs; 1. Continue Regular diet as tolerated 2. Bowel care PRN 3. Weekly wts Addendum: 12/21/21 at [address] Amended: Links added.
[2021-12-21] MEDS: mupirocin 2% ointment 22GM TP SCH ×3 (07:43→21:06)
[2021-12-21] MEDS: OLANZAPINE 5 MG TABLET PO SCH (07:44)
[2021-12-21] MEDS: nicotine 21mg patch - 24 hr TD SCH (07:44)
[2021-12-21] MEDS: PALIPERIDONE 3 MG TAB.ER.24 PO SCH (07:44)
[2021-12-21] MEDS: naproxen sodium 220mg tablet PO SCH ×2 (07:44→21:06)
[2021-12-21 08:00] VITALS: BP 99/62
[2021-12-21] MEDS: acetaminophen 325mg tablet PO PRN (12:38)
--- NOTE | 2021-12-21 12:49 | NUR ---
Patient has been up out of bed at times and appropriate on unit. Does not have any complaints or feelings of self harm at this time according to AM assessment.
[2021-12-21] MEDS: OLANZapine 5mg rapidly disint. tablet PO PRN (14:02)
--- NOTE | 2021-12-21 14:05 | NUR ---
Patient having auditory hallucinations. Pt asked for medication to help calm the voices that tell her to "kill evil one". PRN zyprexa given. Pt calm although she is hearing voices and is in the rec room.
[2021-12-21] MEDS ORDERED: paliperidone palmitate inj 234 MG/1.5 ML SYRINGE IM ONE (14:25)
[2021-12-21 14:45] LABS: CLARITY,URINE CLEAR (Clear); GLUCOSE, URINE NEGATIVE (Neg); KETONES,URINE NEGATIVE (Neg); LEUKOCYTE ESTERASE ,URINE NEGATIVE (Neg); NITRITES, URINE NEGATIVE (Neg); OCCULT BLOOD,URINE NEGATIVE (Neg); PH,URINE 6.5 (4.8-8.0); PROTEIN,URINE NEGATIVE (Neg); UROBILINOGEN,URINE 0.2 E.U/dL (0.2-1.0)
[2021-12-21 14:47] LABS: COLOR,URINE STRAW (Yellow); UA COLLECTION TYPE NON-SPECIFIED
--- NOTE | 2021-12-21 17:06 | NUR ---
Nursing Progress Note Patient: Yajaira Tomas Problem : Pt admitted to [facility] for Behavioral health on a 5150 for DTS. Pt reports suicidal thoughts, is off her psychiatric meds, and requests dual diagnosis treatment. She is unable to report viable plan for food, clothing and usp. Pt has history of Depression, Schizophrenia, Bipolar, anxiety. Pt reports S/I with no current plan and continued AH/VH. Patient currently on 5250 hold. Interventions : Maintained a safe and supportive environment, provided clear and simple instructions, attempted to orient to reality, provided active listening and positive encouragement, reassured pt. of her safety on the unit, encouraged performance of ADLs, and maintained Q 15m min safety checks. Response: Pt was in bed asleep at change of shift and woke easily for assessment and breakfast in eating area. Patient took her medications willingly. Pt is pleasant, somewhat talkative and appears in a pretty good mood although she still has a partially flat affect. She has had some AH where she heard, kill evil one. She was given a prn Zyprexa and 234mg Invega IM. No SI/HI per patient today. Plan : Disposition: Patient still requires interruption of current crisis, medication adjustments, and a safe and supportive environment. Potential discharge disposition when appropriate may include substance use rehabilitation versus [facility].
[2021-12-21 20:00] VITALS: BP 94/61
[2021-12-21] MEDS: olanzapine 10mg tablet PO SCH (21:06)
--- NOTE | 2021-12-22 03:25 | NUR ---
pt sleepy. had snack and then back to bed. while giving medications she was singing quietly to roommate. she then went to sleep.
[2021-12-22 08:00] VITALS: BP 93/59
[2021-12-22] MEDS: nicotine 21mg patch - 24 hr TD SCH (08:17)
[2021-12-22] MEDS: naproxen sodium 220mg tablet PO SCH ×2 (08:17→20:19)
[2021-12-22] MEDS: PALIPERIDONE 3 MG TAB.ER.24 PO SCH (08:17)
[2021-12-22] MEDS: mupirocin 2% ointment 22GM TP SCH ×3 (08:17→21:07)
[2021-12-22] MEDS: OLANZAPINE 5 MG TABLET PO SCH (08:17)
[2021-12-22] MEDS: acetaminophen 325mg tablet PO PRN ×2 (11:51→16:41)
[2021-12-22] MEDS: OLANZapine 5mg rapidly disint. tablet PO PRN (14:53)
[2021-12-22] MEDS: NICOTINE POLACRILEX 2 MG LOZENGE BC PRN (15:17)
[2021-12-22] MEDS ORDERED: hydrOXYzine 25 MG tablet PO ONE (16:20)
--- NOTE | 2021-12-22 17:33 | NUR ---
Nursing Progress Notes: Problem: Patient is a 35 year old female admitted to [facility] on 12/11/21 on a 5150 for Danger to Self. Patient reports suicidal thoughts, and is off her psychiatric medications on admission. Patient is unable to report a viable plan for food, clothing and assisted at the time the 5150 is written. Patient also has a history of Suicidal Ideation, Schizophrenia, Methamphetamine Use, and Malingering. Interventions: Patient Assessment and 1:1 Patient Interview was completed. Patient took her medications, and all of her scheduled medications were administered per MD order. Patient has healing areas of [place] where Bactroban was applied per MD orders on the right side of her lip, and her right nares area using a cotton applicator. Patient c/o anxiety, at approximately [address] Ramsey. Patient c/o anxiety and was given Zyprexa 5mg po at 1408. Dr. Ramsey gave telephone order for one time dose of Atarax 50 mg po now which was given at 1635. Patient also requested Tylenol at 1645 for c/o right lip and nares pain rated at 5 on scale 1-10. Patient received Tylenol po at 1640. Patient states she received relief from all of the prns, Zyprexa, Atarax & Tylenol given since 1408 this afternoon Response: Patient reports no suicidal ideation at this time. Patient states she received relief from all of the prns, Zyprexa, Atarax & Tylenol given since 1408 this afternoon. Patients areas on her nares and right side of her lip are almost healed from applications of Bactroban administered tid per MD orders. Patient c/o pain on these areas x2 and received Tylenol with relief of pain to 1. Patient rested in her bed most of the day, and did not report and visualizations of snakes during this shift. Plan: Patient continues to require crisis interruption and stabilization with medication management and monitoring in a safe and therapeutic environment. Patient is currently here on a DTS-5250 at this time.
[2021-12-22 19:44] VITALS: BP 116/88
[2021-12-22] MEDS: olanzapine 10mg tablet PO SCH (20:19)
--- NOTE | 2021-12-23 02:32 | NUR ---
Nursing Progress Note: Problem : Pt admitted to [facility] for Behavioral health on a 5150 for DTS. Pt reports suicidal thoughts, is off her psychiatric meds, and requests dual diagnosis treatment. She is unable to report viable plan for food, clothing and detention. Pt has history of Depression, Schizophrenia, Bipolar, anxiety. Pt reports S/I with no current plan and continued A/VH. Interventions : Maintained a safe and supportive environment, provided clear and simple instructions, attempted to orient to reality, provided active listening and positive encouragement, reassured pt. of her safety on the unit, encouraged performance of ADLs, and maintained Q 15m min safety checks. Response: Patient spent the evening napping on her bed. She declines 1:1 nursing assessment, "I'm just too tired for that right now." She turns over and goes back to sleep. Patient slept until snack time, but declined to get up. She accepts HS meds without comment. Patient denies MH symptoms, but makes delusional comments. She gets up through the night requesting juices to drink. She has no problems with sleep. Plan : Per KATHI Bates pt. continues to require medication adjustments and a safe and supportive environment. She does not have a safety plan for discharge.'
[2021-12-23 07:42] VITALS: BP 94/64
[2021-12-23] MEDS: PALIPERIDONE 3 MG TAB.ER.24 PO SCH (08:29)
[2021-12-23] MEDS: OLANZAPINE 5 MG TABLET PO SCH (08:29)
[2021-12-23] MEDS: naproxen sodium 220mg tablet PO SCH ×2 (08:29→20:14)
[2021-12-23] MEDS: nicotine 21mg patch - 24 hr TD SCH (08:29)
[2021-12-23] MEDS: mupirocin 2% ointment 22GM TP SCH ×3 (08:29→20:58)
[2021-12-23] MEDS: OLANZapine 5mg rapidly disint. tablet PO PRN ×2 (10:06→15:02)
[2021-12-23] MEDS: acetaminophen 325mg tablet PO PRN (15:53)
[2021-12-23] MEDS ORDERED: hydrOXYzine 25 MG tablet PO PRN (16:30)
[2021-12-23] MEDS: hydrOXYzine 25 MG tablet PO PRN (17:11)
--- NOTE | 2021-12-23 17:17 | NUR ---
Nursing Progress Notes: Problem: Patient is a 35 year old female admitted to [facility] on 12/11/21 on a 5150 for Danger to Self. Patient reports suicidal thoughts, and is off her psychiatric medications on admission. Patient is unable to report a viable plan for food, clothing and penitentiary at the time the 5150 is written. Patient also has a history of Suicidal Ideation, Schizophrenia, Methamphetamine Use, and Malingering. Interventions: Patient Assessment and 1:1 Patient Interview was completed. Patient took her medications without hesitation. Patient kept asking during multiple times throughout the day for Something to make me sleep. Informed the patient that she has Zyprexa ordered for anxiety. Patient requested Zyprexa x 2 today (morning and afternoon.) Response: Patient reported that she was anxious, and requested Zyprexa x2 during day shift. Patient informed that Dr. Fierro had ordered Atarax, Two different strengths. Patients EMAR was updated with the 2 new doses of Atarax 75mg po q6h prn and Atarax 100mg po prn hs. Patient requested Atarax 75mg po at 1711. Plan: Patient continues to require crisis interruption and stabilization with medication management and monitoring in a safe and therapeutic environment. Patient is currently here on a DTS-5250 at this time.
[2021-12-23] MEDS: olanzapine 10mg tablet PO SCH (20:14)
[2021-12-23 20:29] VITALS: BP 98/60
--- NOTE | 2021-12-24 03:49 | NUR ---
Nursing Progress Note: Problem : Pt admitted to [facility] for Behavioral health on a 5150 for DTS. Pt reports suicidal thoughts, is off her psychiatric meds, and requests dual diagnosis treatment. She is unable to report viable plan for food, clothing and alf. Pt has history of Depression, Schizophrenia, Bipolar, anxiety. Pt reports S/I with no current plan and continued A/VH. Interventions : Maintained a safe and supportive environment, provided clear and simple instructions, attempted to orient to reality, provided active listening and positive encouragement, reassured pt. of her safety on the unit, encouraged performance of ADLs, and maintained Q 15m min safety checks. Response: Patient went from eating dinner back to her room and bed. woke her for snack time, but she declined. She reports that she's doing fine, while also continuing to have delusions about snakes in her room. She denies SI at this time. patient is compliant and makes no complaints about her medications. She does not talk a lot, and answers mostly closed-ended questions. Patient sleeps through the night, often coming out for juice or water. Plan : Per KATHI Bates pt. continues to require medication adjustments and a safe and supportive environment. She does not have a safety plan for discharge.'
[2021-12-24 08:00] VITALS: BP 95/65
[2021-12-24] MEDS: naproxen sodium 220mg tablet PO SCH ×2 (08:00→20:46)
[2021-12-24] MEDS: nicotine 21mg patch - 24 hr TD SCH (08:00)
[2021-12-24] MEDS: PALIPERIDONE 3 MG TAB.ER.24 PO SCH (08:00)
[2021-12-24] MEDS: mupirocin 2% ointment 22GM TP SCH ×3 (11:06→20:46)
[2021-12-24] MEDS: hydrOXYzine 25 MG tablet PO PRN (11:06)
[2021-12-24] MEDS: OLANZapine 5mg rapidly disint. tablet PO PRN (12:02)
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
[2021-12-24] MEDS: mag hydrox/Alum hydrox/simeth 30ml oral suspension PO PRN (16:15)
[2021-12-24] MEDS: acetaminophen 325mg tablet PO PRN (16:30)
[2021-12-24] MEDS ORDERED: LORazepam 1 MG tablet PO ONE (17:20)
--- NOTE | 2021-12-24 17:50 | NUR ---
EKG Pt was C/O chest pain that she described in multiple different ways; burning, pressure, tender. Maalox was given for nausea, which she states did not alleviate the pain. EKG normal. Dr. Fierro ordered Ativan 1 mg once one
[2021-12-24 19:09] VITALS: BP 103/76
[2021-12-24] MEDS: olanzapine 10mg tablet PO SCH (20:46)
--- NOTE | 2021-12-25 04:57 | NUR ---
Nursing Progress Note: Problem : Pt admitted to [facility] for Behavioral health on a 5150 for DTS. Pt reports suicidal thoughts, is off her psychiatric meds, and requests dual diagnosis treatment. She is unable to report viable plan for food, clothing and longterm. Pt has history of Depression, Schizophrenia, Bipolar, anxiety. Pt reports S/I with no current plan and continued A/VH. Interventions : Maintained a safe and supportive environment, provided clear and simple instructions, attempted to orient to reality, provided active listening and positive encouragement, reassured pt. of her safety on the unit, encouraged performance of ADLs, and maintained Q 15m min safety checks. Response: Pt was up and ambulating around unit at change of shift. Shortly after, she resorted to her room/bed. She did not attend snack hour. Pt is pleasant, but lethargic. She allowed a minimal assessment, took PM medicines, and then resorted back to sleeping. Plan : Per KATHI Bates pt. continues to require medication adjustments and a safe and supportive environment. She does not have a safety plan for discharge.'
[2021-12-25 07:30] VITALS: BP 93/58
[2021-12-25] MEDS: nicotine 21mg patch - 24 hr TD SCH (07:44)
[2021-12-25] MEDS: naproxen sodium 220mg tablet PO SCH ×2 (07:44→20:44)
[2021-12-25] MEDS: PALIPERIDONE 3 MG TAB.ER.24 PO SCH (07:44)
[2021-12-25] MEDS: mupirocin 2% ointment 22GM TP SCH ×2 (08:00→12:30)
[2021-12-25] MEDS: hydrOXYzine 25 MG tablet PO PRN (09:39)
[2021-12-25] MEDS ORDERED: albuterol 2.5 MG/3 ML nebule NEB ONE (10:40)
[2021-12-25] MEDS: acetaminophen 325mg tablet PO PRN (14:07)
[2021-12-25] MEDS: mag hydrox/Alum hydrox/simeth 30ml oral suspension PO PRN (14:07)
[2021-12-25] MEDS ORDERED: albuterol 2.5 MG/3 ML nebule NEB PRN (14:40)
--- NOTE | 2021-12-25 15:31 | NUR ---
DISCHARGE PLAN Genoveva would like to discharge to [place] to package pick up a check from her diomede. She plans on staying with her cousins in [place]. She plans on following up with [facility] for her medications. She did not want to return to [place] or [place] and explained that people there are racist against her. Informed her that [facility] would like to meet with her upon discharge and she was adamant about going to [place]. Bus leaves 10:25 from [email or web address] transit station on Thursday. She will need $ to purchase a ticket. SANDER Rodas
[2021-12-25] MEDS ORDERED: cloNIDine 0.1 mg tablet PO ONE (15:35)
[2021-12-25] MEDS ORDERED: paliperidone palmitate inj 234 MG/1.5 ML SYRINGE IM ONE (15:45)
--- NOTE | 2021-12-25 17:41 | NUR ---
Nursing Progress Note: Genoveva Problem: Pt reports suicidal thoughts and is off her psychiatric meds. She is unable to report viable plan for food, clothing and [facility]. Pt has history of Depression, Schizophrenia, Bipolar, anxiety. Pt reports S/I with no current plan and continued A/VH. Intervention: Medication given as ordered with no adverse side effects noted. Provided with a safe and therapeutic environment, clear communication, active listening and positive encouragement. Response: Patient is resting quietly in bed at the start of the shift. She requests PRN Atarax for anxiety which appears helpful. PRN Maalox is given for c/o upset stomach. PRN Tylenol given for c/o headache and generalized pain. Patient makes several complains of feeling like she is going to pass out and seeing small spots in her vision. She appears anxious and requires frequent reassurance. Provider is aware. Plan: Patient continues to require crisis interruption and stabilization with medication management and monitoring in a safe and therapeutic environment.
[2021-12-25 20:00] VITALS: BP 105/70
[2021-12-25] MEDS: olanzapine 10mg tablet PO SCH (20:43)
--- NOTE | 2021-12-26 01:10 | NUR ---
Nursing Progress Note: Problem: Pt reports suicidal thoughts and is off her psychiatric meds. She is unable to report viable plan for food, clothing and prison. Pt has history of Depression, Schizophrenia, Bipolar, anxiety. Pt reports S/I with no current plan and continued A/VH. Intervention: Medication given as ordered with no adverse side effects noted. Provided with a safe and therapeutic environment, clear communication, active listening and positive encouragement. Response: Patient is resting quietly in bed at the start of the shift and remained there for the entire shift. She denied any thoughts of suicide. She continued to c/o feeling nauseated, but stated resting in bed was helping her feel better. Plan: Patient continues to require crisis interruption and stabilization with medication management and monitoring in a safe and therapeutic environment.
[2021-12-26] MEDS: PALIPERIDONE 3 MG TAB.ER.24 PO SCH (07:26)
[2021-12-26] MEDS: naproxen sodium 220mg tablet PO SCH ×2 (07:26→20:16)
[2021-12-26] MEDS: nicotine 21mg patch - 24 hr TD SCH (07:26)
[2021-12-26 08:00] VITALS: BP 88/57
--- NOTE | 2021-12-26 11:02 | NUR ---
Invega sustenna 117mg given per MD order to right deltoid. Tolerated well.
[2021-12-26] MEDS: cloNIDine 0.1 mg tablet PO PRN ×2 (12:07→19:10)
[2021-12-26] MEDS: acetaminophen 325mg tablet PO PRN (15:31)
--- NOTE | 2021-12-26 15:46 | NUR ---
Nursing Progress Note: Genoveva Problem: Pt reports suicidal thoughts and is off her psychiatric meds. She is unable to report viable plan for food, clothing and halfway. Pt has history of Depression, Schizophrenia, Bipolar, anxiety. Pt reports S/I with no current plan and continued A/VH. Intervention: Medication given as ordered with no adverse side effects noted. Provided with a safe and therapeutic environment, clear communication, active listening and positive encouragement. Response: Patient is resting quietly in bed at the start of the shift. Cooperative with assessment and medications. Invega sustenna given as ordered. Patient isolates to her room at times but also spends some time watching TV in the rec room. She appears anxious and PRN clonidine is given which appears effective. Denies any suicidal/ homicidal ideation. Plan: Patient continues to require crisis interruption and stabilization with medication management and monitoring in a safe and therapeutic environment.
[2021-12-26 19:00] VITALS: BP 102/70
[2021-12-26] MEDS: olanzapine 10mg tablet PO SCH (20:16)
--- NOTE | 2021-12-27 00:45 | NUR ---
Nursing Progress Note: Problem: Pt reports suicidal thoughts and is off her psychiatric meds. She is unable to report viable plan for food, clothing and halfway. Pt has history of Depression, Schizophrenia, Bipolar, anxiety. Pt reports S/I with no current plan and continued A/VH. Intervention: Medication given as ordered with no adverse side effects noted. Provided with a safe and therapeutic environment, clear communication, active listening and positive encouragement. Response: Patient is resting quietly in bed at the start of the shift and remained there the entire shift, she did not participate in HS snacks. She was c/o anxiety at the start of the shift so PRN Clonidine was administered, (B/P checked prior to administration and was 112/60) which she stated was effective. She continues to endorse A/H but was unable to tell me what they are saying. She denies any feelings of paranoia or feeling like people are trying to harm her. Denies any thoughts of suicide. She is happy about her discharge tomorrow and states she is going to be with her Mom up in [facility]. Plan: Patient continues to require crisis interruption and stabilization with medication management and monitoring in a safe and therapeutic environment.
[2021-12-27 08:00] VITALS: BP 110/70
[2021-12-27] MEDS: nicotine 21mg patch - 24 hr TD SCH (08:00)
[2021-12-27] MEDS: PALIPERIDONE 3 MG TAB.ER.24 PO SCH (08:00)
--- NOTE | 2021-12-27 08:00 | NUR ---
Per Dr. Fierro, pt's Paliperidone ER 6mg was held this morning r/t pt. receiving an Invega injection yesterday. Pt. was provided education regarding this and reported understanding.
[2021-12-27] MEDS: naproxen sodium 220mg tablet PO SCH (08:05)
[2021-12-27] MEDS ORDERED: PALI117D IM (08:14)
[2021-12-27] MEDS ORDERED: CLON0.1T2 PO (08:14)
[2021-12-27] MEDS ORDERED: NAPR220T67 PO (08:14)
[2021-12-27] MEDS ORDERED: OLAN15TA35 PO (08:14)
[2021-12-27] MEDS ORDERED: ALBU2.5V7 NEB (08:14)
--- NOTE | 2021-12-27 09:07 | NUR ---
Provided Genoveva $5 for [employer] bus ticket to [place]. No receipt available. SANDER Rodas
--- NOTE | 2021-12-27 09:45 | NUR ---
Discharge Note: Pt. was discharged off the unit accompanied by staff and security to a taxi which will be transporting her to the [facility] bus station. She will be taking a bus to the [facility] in [place], [place]. Pt's belongings were inventoried and returned to her by tech. This screen writer reviewed discharge instructions and medications with pt. and she reported understanding. Pt. is able to contract for safety. No nicotine replacement was required.
[2021-12-28] MEDS ORDERED: CLON0.1T PO (22:41)
[2021-12-28] MEDS ORDERED: PALI117D IM (23:09)
[2021-12-28] MEDS ORDERED: OLAN5TAB3 PO (23:09)
[2021-12-28] MEDS ORDERED: NAPR-1115 PO (23:09)
== END 2021-12-27 09:43 | disposition home or self-care (01) | DRG 750 ==
LOC: ER 00:09 → MERGE 11:05 → ED HOLD 11:05 → ADULT MH 11:47
PROVIDERS: ADMIT Psychiatry & Neurology Psychiatry; ATTEND Psychiatry & Neurology Psychiatry
DX: F20.9 Schizophrenia, unspecified (principal); R45.851 Suicidal ideations; Z59.00 Homelessness unspecified; F15.90 Other stimulant use, unspecified, uncomplicated; Z20.822 Contact with and (suspected) exposure to COVID-19; F10.10 Alcohol abuse, uncomplicated; J45.909 Unspecified asthma, uncomplicated; Z76.5 Malingerer [conscious simulation]; F41.9 Anxiety disorder, unspecified; F17.210 Nicotine dependence, cigarettes, uncomplicated; R53.81 Other malaise; Z71.6 Tobacco abuse counseling
CPT/HCPCS: 36415; 76856; 80053; 80061; 80305; 80320; 80329; 81003; 81025; 83036; 84443; 85025; 87081; 93005; 93976; 94640; 94760; 99285; J2426; Q0163; Q0177

== ENCOUNTER 2021-12-28 14:43 | Inpatient (IN) | payer MEDICAID ==
[~2021-12-28] VITALS: Ht 160 cm; Wt 80.0 kg
[~2021-12-28 14:43] MED LIST changes: +ALBU2.5V7 NEB; +CLON0.1T2 PO; +NAPR220T67 PO; +OLAN15TA35 PO; +PALI117D IM
[2021-12-28 15:42] LABS: BASOPHILS % (AUTO) 0.3 % (0-1); EOSINOPHILS # (AUTO) 0.1 X10'3 (0-0.9); EOSINOPHILS % (AUTO) 1.1 % (0-6); HEMATOCRIT 42.1 % (35.0-45.0); HEMOGLOBIN 14.4 g/dl (12.0-16.0); LYMPHOCYTES % (AUTO) 19.1 % (21-51); MEAN CORPUSCULAR HEMOGLOBIN 28.8 PG (27.0-31.0); MEAN CORPUSCULAR HGB CONC 34.1 g/dL (33.0-36.5); MEAN CORPUSCULAR VOLUME 84.6 FL (78-98); MEAN PLATELET VOLUME 7.6 FL (7.4-10.4); MONOCYTES # (AUTO) 0.8 X10'3 (0-0.9); MONOCYTES % (AUTO) 7.6 % (2-12); NEUTROPHILS # (AUTO) 7.5 X10'3 (1.8-7.7); NEUTROPHILS % (AUTO) 71.9 % (42-75); PLATELET COUNT 343 X10'3 (140-440); RED BLOOD COUNT 4.98 X10'6 (4.20-5.60); RED CELL DISTRIBUTION WIDTH 14.2 % (11.5-14.5); WHITE BLOOD COUNT 10.4 X10'3 (4.5-11.0)
[2021-12-28 15:56] LABS: ALANINE AMINOTRANSFERASE 30 U/L (12-78); ALBUMIN/GLOBULIN RATIO 1.1 (1.1-1.5); ALKALINE PHOSPHATASE 73 IU/L (46-116); ANION GAP 12 (8-16); ASPARTATE AMINO TRANSFERASE 28 U/L (10-37); BILIRUBIN,TOTAL 0.5 MG/DL (0.1-1.0); BLOOD UREA NITROGEN 12 MG/DL (7-18); BUN/CREATININE RATIO 16.7 (6.6-38.0); CALCIUM 8.8 MG/DL (8.5-10.1); CHLORIDE 106 MMOL/L (99-107); CREATININE 0.72 MG/DL (0.40-0.90); GLUCOSE 91 MG/DL (70-104); POTASSIUM 3.7 MMOL/L (3.5-5.1); SODIUM 141 MMOL/L (135-145); TOTAL CARBON DIOXIDE 23.3 MMOL/L (24-32); TOTAL PROTEIN 7.8 G/DL (6.4-8.2); eGFR > 90 ML/MIN
[2021-12-28 16:05] LABS: ETHANOL < 0.010 GM/DL (0.0-0.010)
[2021-12-28 16:10] LABS: CLARITY,URINE CLEAR (Clear); COLOR,URINE YELLOW (Yellow); GLUCOSE, URINE NEGATIVE (Neg); KETONES,URINE NEGATIVE (Neg); LEUKOCYTE ESTERASE ,URINE NEGATIVE (Neg); NITRITES, URINE NEGATIVE (Neg); OCCULT BLOOD,URINE NEGATIVE (Neg); PROTEIN,URINE NEGATIVE (Neg); UROBILINOGEN,URINE 0.2 E.U/dL (0.2-1.0)
[2021-12-28 16:13] LABS: URINE HCG NEGATIVE (NEG)
[2021-12-28 16:19] LABS: URINE AMPHETAMINE SCREEN POSITIVE (Neg); URINE BARBITUATE SCREEN NEGATIVE (Neg); URINE BENZODIAZEPINES SCREEN NEGATIVE (Neg); URINE CANNABINOID SCREEN POSITIVE (Neg); URINE COCAINE SCREEN NEGATIVE (Neg); URINE METHADONE SCREEN NEGATIVE (Neg); URINE OPIATE SCREEN NEGATIVE (Neg); URINE PHENCYCLIDINE SCREEN NEGATIVE (Neg)
[2021-12-28 16:20] LABS: UA COLLECTION TYPE CLN CATCH MIDSTREAM
--- NOTE | 2021-12-28 18:47 | NUR ---
Report called to Overflow nurse. Patient will transfer over when bed is ready.
--- NOTE | 2021-12-28 19:40 | NUR ---
PT brought bach to ER overflow and changed into green scrubs. Belongings inventoried water given to pt and warm blanket.
[2021-12-28] MEDS: LORazepam 1 MG tablet PO PRN (20:49)
--- NOTE | 2021-12-28 22:00 | NUR ---
Pt given PRN ativan 1mg for anxiety. PT woke up calling out names, and was visibly upset. PT calmed down nafter given ativan and warm blanket
[2021-12-28] MEDS ORDERED: CLON0.1T PO (22:41)
[2021-12-28] MEDS ORDERED: OLAN5TAB3 PO (23:09)
[2021-12-28] MEDS ORDERED: PALI117D IM (23:09)
[2021-12-28] MEDS ORDERED: NAPR-1115 PO (23:09)
[2021-12-29] MEDS ORDERED: cloNIDine 0.1 mg tablet PO PRN (00:30)
[2021-12-29 01:15] VITALS: BP 97/66
[2021-12-29] MEDS ORDERED: acetaminophen 325mg tablet PO PRN ×2 (01:20)
[2021-12-29] MEDS ORDERED: magnesium hydroxide 30ml (MOM) UD suspension PO PRN (01:20)
[2021-12-29] MEDS ORDERED: NICOTINE POLACRILEX 2 MG LOZENGE BC PRN (01:20)
--- NOTE | 2021-12-29 04:58 | NUR ---
FIREFIGHTER TYPE ONE NOTE: LEGAL HOLD: 5150 for DTS REASON FOR ADMIT: Client BIB [facility]CS[facility] after reporting having been "bitten by a snake" and stating "I don't want to be here anymore." There was no evidence of a snakebite. Client was placed on a 5150 by Law Enforcement. THIS SHIFT: Client arrived on unit at 01:08, in a wheelchair, accompanied by Patti Cali and a home security professional. Client declined a showered and requested a snack. Client was given a sandwich and juice. Client cooperated with 2 RN Skin assessment and personal belongings were inventoried. Client was fatigued and wanted to go to bed. Client did not make suicidal statements. She stated to Evie Gambino RN "Me and my children are having babies for [place]." Client has a history of delusions regarding "snakes and serpents". She was taking to ED for reporting being "bitten by a snake".
[2021-12-29 07:32] VITALS: BP 84/52
[2021-12-29] MEDS: naproxen sodium 220mg tablet PO SCH ×2 (07:44→20:36)
[2021-12-29] MEDS: loperamide 2mg capsule PO PRN (11:56)
[2021-12-29] MEDS: mag hydrox/Alum hydrox/simeth 30ml oral suspension PO PRN (11:56)
[2021-12-29] MEDS ORDERED: ALBU8HFA PO (15:58)
--- NOTE | 2021-12-29 17:23 | NUR ---
Problem : . Client BIB [facility]CSO after reporting having been "bitten by a snake" and stating "I don't want to be here anymore." There was no evidence of a snakebite. Client was placed on a 5150 by Law Enforcement. Pt has history of Bipolar. Interventions : Introduced self and established rapport, maintained a safe and supportive environment, ensured contract for safety, provided active listening and positive encouragement, encouraged participation on the unit, and maintained Q 15min safety checks. Response : Pt awake this morning before breakfast. PT states she is depressed but not suicidal. PT states she would like to be discharged tomorrow. She states her [place] will pay for 4 days in a motel. Then she would like to go with probation to [place] or maybe hang out in [place]. Pt pleasant and cooperative. Plan : Pt. requires interruption of current crisis, medication adjustments, and a safe and supportive environment.
[2021-12-29 19:25] VITALS: BP 98/58
[2021-12-29] MEDS: OLANZAPINE 5 MG TABLET PO SCH (20:36)
--- NOTE | 2021-12-30 04:52 | NUR ---
Problem : . Client BIB [facility]CSO after reporting having been "bitten by a snake" and stating "I don't want to be here anymore." There was no evidence of a snakebite. Client was placed on a 5150 by Law Enforcement. Pt has history of Bipolar. Interventions : Introduced self and established rapport, maintained a safe and supportive environment, ensured contract for safety, provided active listening and positive encouragement, encouraged participation on the unit, and maintained Q 15min safety checks. Response : Patient is pleasant and cooperative with care; compliant with medication. She denies SI, HI, A/VH; no apparent delusions expressed. Patient mostly isolative to bed; reported, "just really tired." She participated in HS snack and promptly returned to bed; observed sleeping and does not appear to be having difficulty. Plan : Pt. requires interruption of current crisis, medication adjustments, and a safe and supportive environment.
[2021-12-30 08:00] VITALS: BP 80/51
[2021-12-30] MEDS: naproxen sodium 220mg tablet PO SCH (08:00)
[2021-12-30] MEDS: LORazepam 1 MG tablet PO PRN ×2 (08:07→15:27)
[2021-12-30 09:28] VITALS: BP 107/63
--- NOTE | 2021-12-30 12:30 | NUR ---
Pt. became extremely upset when she spoke with the foster care social worker this AM who told her she will not be discharging today. Genoveva started yelling, "the doctor told me I would be discharging today, all the foster care social worker needed to do was give me money for the bus!" She continued to yell but was redirected to her bedroom where she threw herself on her bed and threw what appeared to be as a temper tantrum. Pt calmed down but then started saying, "I will not continue to take my medications, they are against my voodoo." Pt. was able to calm herself down and has been resting in her room since.
--- NOTE | 2021-12-30 15:36 | NUR ---
Nursing Note: Problem : [facility] after reporting having been "bitten by a snake" and stating "I don't want to be here anymore." There was no evidence of a snakebite. Client was placed on a 5150 by Law Enforcement. Pt has history of Bipolar. Interventions: Introduced self and established rapport, maintained a safe and supportive environment, ensured contract for safety, provided active listening and positive encouragement, encouraged participation on the unit, and maintained Q 15min safety checks. Response : Pt asleep at change of shift. 1:1 assessment done at bedside, medication compliant. Pt denies feeling depressed, no SI/HI. Denies A/VH. Pt fixated on discharging. See previous note regarding behaviors this shift. PRN Ativan administered X2. Pt moods are labile. Plan: Pt. requires interruption of current crisis, medication adjustments, and a safe and supportive environment.
[2021-12-30 19:33] VITALS: BP 97/54
[2021-12-30] MEDS: OLANZAPINE 5 MG TABLET PO SCH (20:34)
--- NOTE | 2021-12-31 04:44 | NUR ---
Problem : . Client BIB [facility]CSO after reporting having been "bitten by a snake" and stating "I don't want to be here anymore." There was no evidence of a snakebite. Client was placed on a 5150 by Law Enforcement. Pt has history of Bipolar. Interventions : Introduced self and established rapport, maintained a safe and supportive environment, ensured contract for safety, provided active listening and positive encouragement, encouraged participation on the unit, and maintained Q 15min safety checks. Response : Patient is pleasant and cooperative with care; compliant with medication. PRN Clonidine provided for c/o increased anxiety. Patient denies SI, HI, A/VH; no apparent delusions were expressed this shift. Patient mostly isolative to bed. She participated in HS snack and promptly returned to bed; observed sleeping and does not appear to be having difficulty. No outbursts presented this shift. Plan : Pt. requires interruption of current crisis, medication adjustments, and a safe and supportive environment.
[2021-12-31] MEDS: ibuprofen tablet 400 MG TABLET PO SCH ×3 (07:41→16:54)
[2021-12-31] MEDS: LORazepam 1 MG tablet PO PRN ×2 (10:51→17:02)
--- NOTE | 2021-12-31 13:14 | NUR ---
Initial: Pt admit for Schizophrenia. Currently on a regular diet and eating well, documented with mostly 100% PO intake. Pt accepting snacks as well per airline customer service agent. Overall meeting estimated nutrient needs. LBM 12/30. No documented edema or wounds. No nutrition diagnosis at this time. Will continue to follow. Recommendations: 1) Continue regular diet 2) Bowel care PRN 3) Weekly scaled weights Addendum: 12/31/21 at [address] Amended: Links added.
--- NOTE | 2021-12-31 15:52 | NUR ---
Nursing Progress Note: Genoveva Problem: Client reporting having been "bitten by a snake" and stating "I don't want to be here anymore." There was no evidence of a snakebite. Client was placed on a 5150 by Law Enforcement. Pt has history of Bipolar. Intervention: Medication given as ordered. Provided with a safe and therapeutic environment, clear communication, active listening and positive encouragement. Response: Patient is resting quietly in bed at the start of the shift. Requests PRN Ativan upon awakening for anxiety which appears effective. Cooperative with medications and assessment. Isolates to her room and minimizes mental health symptoms. States, I want to discharge as soon as possible. Patient states she wants to discharge to a rehab facility to address substance abuse issues. Plan: Patient continues to require crisis interruption and stabilization with medication management and monitoring in a safe and therapeutic environment.
--- NOTE | 2021-12-31 16:46 | NUR ---
Genoveva is a 36 y/o [place] female who was placed on 5150 by [facility] on 12/28/21 for danger to self.[place] [employer] contacted [facility] to report they were out with a suicidal female. Fire Dept was called when Genoveva went to check into a hotel and stated she had been bit by a rattlesnake which was not true. She told the [place] she was hearing voices in her head that were telling her to kill herself. She said she was going to jump in front of a car. She was transported to [facility] ED and admitted to [facility] once medically cleared. ED U tox was positive for amphetamines and marijuana. Genoveva had just discharged from [facility] on 12/27/21 (admit date of 12/11/21). She had been given $5 to take a bus to [place] where she was intending on connecting with the [facility] to establish housing. Per Genoveva they were going to put her up in a motel for 4 days. Genoveva currently has [facility] and is on probation in [facility]. Genoveva has a history of non-compliance with mental health treatment along with on-going drug use. Initially Genoveva reported she wanted to discharge and return to [place]. She was quite upset when informed she was not discharging immediately (this was on 12/30/21). Today she reported she wanted to go to rehab. Informed her she could try [facility] or [facility], both are in [place] [place] [facility], and she was agreeable to this. Provided her with the phone number to [facility]. SANDER Rodas Addendum: 12/31/21 at 1648 by Angélica ALCANTARA Amended: Links added.
[2021-12-31 19:34] VITALS: BP 98/56
[2021-12-31] MEDS: OLANZAPINE 5 MG TABLET PO SCH (20:39)
--- NOTE | 2022-01-01 04:39 | NUR ---
Problem : Client BIB [facility] after reporting having been "bitten by a snake" and stating "I don't want to be here anymore." There was no evidence of a snakebite. Client was placed on a 5150 by Law Enforcement. Pt has history of Bipolar. Interventions : Introduced self and established rapport, maintained a safe and supportive environment, ensured contract for safety, provided active listening and positive encouragement, encouraged participation on the unit, and maintained Q 15min safety checks. Response : Patient is pleasant and cooperative with care; compliant with medication. She denies SI, HI, A/VH; no apparent delusions expressed. Patient continues to self isolate to bedroom. Received HS snack prior to bed; observed sleeping and does not appear to be having difficulty. Patient signed voluntary this shift. Plan : Pt. requires interruption of current crisis, medication adjustments, and a safe and supportive environment.
[2022-01-01] MEDS: ibuprofen tablet 400 MG TABLET PO SCH ×2 (07:35→11:43)
[2022-01-01] MEDS: LORazepam 1 MG tablet PO PRN ×2 (08:11→15:43)
[2022-01-01] MEDS: mag hydrox/Alum hydrox/simeth 30ml oral suspension PO PRN (11:43)
[2022-01-01] MEDS: loperamide 2mg capsule PO PRN (13:27)
--- NOTE | 2022-01-01 15:10 | NUR ---
DISCHARGE PLAN Genoveva was placed on Voluntary status last night and she is requesting to leave today. Her discharge plan changed a couple times within minutes. She initially said she wants to go to the [place] and go to [facility] at the end of January when the expect to have beds open. She then stated she is going to take the bus to [place] so she can get her teeth fixed (she does not have a dental appt). She reported she will follow up with Deja at the [facility] for mental health care. She reported she can walk to the [facility]. Home Restoration Service Cleaner suggested she cloth picker her meds and inquire about an appt with Deja at the [facility] prior to going to the [place]. Genoveva will be provided a bus ticket to take the bus to the [place]. SANDER Rodas
[2022-01-01] MEDS ORDERED: NICO-907 BC (15:28)
[2022-01-01] MEDS ORDERED: CLON0.1T2 PO (15:28)
[2022-01-01] MEDS ORDERED: OLAN15TA35 PO (15:28)
[2022-01-01] MEDS ORDERED: ALBU2.5V7 NEB (15:28)
[2022-01-01] MEDS ORDERED: NAPR-1115 PO (15:28)
--- NOTE | 2022-01-01 16:28 | NUR ---
Discharge Note: Paperwork and follow up reviewed with the patient who is agreeable to discharge. No s/sx acute distress. Escorted off the unit with all of her belongings by staff at 16:27 and is picked up by the critical access hospital light truck driver. Discharged with the following instructions: Follow-Up: Patient has been scheduled/referred to the following providers for post-hospital discharge and aftercare treatment. Psychiatrist: You can follow up at [place] [phone] Primary Care Provider: You can follow up at [place] [phone] Discharge Address: [facility] [address] [place] [address] Transportation: Bus pass provided Patient given community crisis services information and National suicide hotline handout. Resources for education regarding mental illness: [place] [phone] For urgent mental health crisis needs please contact Mobile Crisis Outreach Team Thursday through Thursday 8:30am to 5:00pm. . Mobile Crisis Outreach Team [address] [place], [place] [id number] Urgent Out-patient Mental Health Services 365 Days A Year: [place] [phone] Hours: Mon thru Fri 12pm-9pm Weekends 11am-9pm
== END 2022-01-01 16:28 | disposition home or self-care (01) | DRG 750 ==
LOC: ER 14:43 → UNDOADMIN 22:00 → ED HOLD 22:00 → ADULT MH 12-29 01:15 → ED HOLD 12-29 02:56 → ADULT MH 12-29 02:56 → ED HOLD 12-29 02:57
PROVIDERS: ADMIT Psychiatry & Neurology Psychiatry; ATTEND Psychiatry & Neurology Psychiatry
DX: F20.9 Schizophrenia, unspecified (principal); R45.851 Suicidal ideations; Z59.00 Homelessness unspecified; F17.210 Nicotine dependence, cigarettes, uncomplicated; F15.159 Other stimulant abuse with stimulant-induced psychotic disorder, unspecified; F11.90 Opioid use, unspecified, uncomplicated; F12.10 Cannabis abuse, uncomplicated; G89.29 Other chronic pain; J45.909 Unspecified asthma, uncomplicated; F32.A Depression, unspecified; F41.0 Panic disorder [episodic paroxysmal anxiety]; Z65.3 Problems related to other legal circumstances
CPT/HCPCS: 36415; 80053; 80305; 80320; 81003; 81025; 84443; 85025; 87081; 87635; 99285; C9803; G0378

== ENCOUNTER 2022-01-08 23:26 | Emergency (ER) | payer MEDICAID ==
[~2022-01-08] VITALS: Ht 160 cm; Wt 75.0 kg
[~2022-01-08 23:26] MED LIST changes: +ALBU8HFA PO; -DIAZ5TAB PO; -IBUP-1986 PO; -LORA0.5T PO; +NAPR-1115 PO; -NAPR220T67 PO; +NICO-907 BC; -ONDA4TAB6 PO
[2022-01-08 23:27] VITALS: BP 113/82
--- NOTE | 2022-01-09 02:19 | NUR ---
PT WAS BEING MANIPULATIVE AND TRYING TO BE ADMITED. PT, IN TRYING TO CONVINCE STAFF THAT SHE NEEDED ADMISSION, BEGAN TO MASTURBATE INFRONT OF THE AUTHOR DEPITE BEING REQUESTED/INSTRUCTED TO STOP SAID BEHAVIOR. PT DID NOT STOP AND SECURITY WAS CALLED. UPON HEARING SECURITY WAS CALLED, PT HAD A NEWFOUND CLARITY OF MIND AND RATIONALE AND DECIDED TO [facility] AND EXITED THE ER.
== END 2022-01-09 02:24 | disposition left against medical advice (07) ==
LOC: EEVIPCON 23:26 → ER 23:26
DX: F29 Unspecified psychosis not due to a substance or known physiological condition (principal); F31.9 Bipolar disorder, unspecified; G89.29 Other chronic pain; F12.90 Cannabis use, unspecified, uncomplicated; F15.90 Other stimulant use, unspecified, uncomplicated; F11.90 Opioid use, unspecified, uncomplicated; Z88.8 Allergy status to other drugs, medicaments and biological substances; Z79.899 Other long term (current) drug therapy
CPT/HCPCS: 99281

== ENCOUNTER 2022-01-11 11:45 | Emergency (ER) | payer MEDICAID ==
[~2022-01-11] VITALS: Ht 160 cm; Wt 63.6 kg
[2022-01-11 12:45] LABS: BASOPHILS % (AUTO) 0.5 % (0-1); EOSINOPHILS # (AUTO) 0.1 X10'3 (0-0.9); EOSINOPHILS % (AUTO) 1.1 % (0-6); HEMATOCRIT 38.8 % (35.0-45.0); HEMOGLOBIN 13.1 g/dl (12.0-16.0); LYMPHOCYTES # (AUTO) 2.1 X10'3 (1.1-4.8); LYMPHOCYTES % (AUTO) 26.7 % (21-51); MEAN CORPUSCULAR HEMOGLOBIN 28.2 PG (27.0-31.0); MEAN CORPUSCULAR HGB CONC 33.7 g/dL (33.0-36.5); MEAN CORPUSCULAR VOLUME 83.7 FL (78-98); MEAN PLATELET VOLUME 7.5 FL (7.4-10.4); MONOCYTES # (AUTO) 0.5 X10'3 (0-0.9); MONOCYTES % (AUTO) 6.9 % (2-12); NEUTROPHILS # (AUTO) 5.1 X10'3 (1.8-7.7); NEUTROPHILS % (AUTO) 64.8 % (42-75); PLATELET COUNT 288 X10'3 (140-440); RED BLOOD COUNT 4.64 X10'6 (4.20-5.60); RED CELL DISTRIBUTION WIDTH 13.6 % (11.5-14.5); WHITE BLOOD COUNT 7.9 X10'3 (4.5-11.0)
--- NOTE | 2022-01-11 12:52 | NUR ---
CHARGE NURSE UNABLE TO GET STRIGHT CATH UA FROM PT D/T ANATOMY. PT STATED UNABLE TO URINATE RIGHT NOW. PT GIVEN WATER TO DRINK
[2022-01-11 12:57] LABS: ALANINE AMINOTRANSFERASE 31 U/L (12-78); ALBUMIN 3.5 G/DL (3.4-5.0); ALBUMIN/GLOBULIN RATIO 1.1 (1.1-1.5); ALKALINE PHOSPHATASE 87 IU/L (46-116); ANION GAP 9 (8-16); ASPARTATE AMINO TRANSFERASE 23 U/L (10-37); BILIRUBIN,TOTAL 0.4 MG/DL (0.1-1.0); BLOOD UREA NITROGEN 11 MG/DL (7-18); BUN/CREATININE RATIO 14.3 (6.6-38.0); CALCIUM 8.2 MG/DL (8.5-10.1); CHLORIDE 109 MMOL/L (99-107); CREATININE 0.77 MG/DL (0.40-0.90); GLUCOSE 78 MG/DL (70-104); SODIUM 143 MMOL/L (135-145); TOTAL CARBON DIOXIDE 24.6 MMOL/L (24-32); TOTAL PROTEIN 6.7 G/DL (6.4-8.2); eGFR 85 ML/MIN
[2022-01-11] MEDS ORDERED: potassium Cl 20 mEq SR tablet PO STA (13:02)
[2022-01-11 13:11] LABS: ACETAMINOPHEN < 2.0 UG/ML (10-30); ETHANOL 0.024 GM/DL (0.0-0.010); VALPROATE < 3.0 UG/ML (50-100)
[2022-01-11 13:48] LABS: CLARITY,URINE CLEAR (Clear); COLOR,URINE YELLOW (Yellow); GLUCOSE, URINE NEGATIVE (Neg); KETONES,URINE TRACE mg/dl (Neg); LEUKOCYTE ESTERASE ,URINE NEGATIVE (Neg); NITRITES, URINE NEGATIVE (Neg); OCCULT BLOOD,URINE NEGATIVE (Neg); PROTEIN,URINE NEGATIVE (Neg); UA COLLECTION TYPE CLN CATCH MIDSTREAM; UROBILINOGEN,URINE 0.2 E.U/dL (0.2-1.0)
[2022-01-11 13:49] LABS: URINE HCG NEGATIVE (NEG)
--- NOTE | 2022-01-11 13:54 | NUR ---
CALLED PHARMACY TO FIIX THE K+ ORDER ITS SHOWING INACTIVE IN OMNICELL.
[2022-01-11 14:01] LABS: URINE AMPHETAMINE SCREEN POSITIVE (Neg); URINE BARBITUATE SCREEN NEGATIVE (Neg); URINE BENZODIAZEPINES SCREEN NEGATIVE (Neg); URINE CANNABINOID SCREEN POSITIVE (Neg); URINE COCAINE SCREEN NEGATIVE (Neg); URINE METHADONE SCREEN NEGATIVE (Neg); URINE OPIATE SCREEN NEGATIVE (Neg); URINE PHENCYCLIDINE SCREEN NEGATIVE (Neg)
[2022-01-11] MEDS ORDERED: potassium Cl 20 mEq SR tablet PO ONE (14:10)
--- NOTE | 2022-01-11 14:29 | NUR ---
Pt. ambulated over from the Main ER accompainied by Tech and security, she is laying in bed at this time.
--- NOTE | 2022-01-11 15:00 | NUR ---
[facility]CH FAX PACKET TO [facility] @14:95
[2022-01-11] MEDS ORDERED: ALBU8HFA INH (16:10)
[2022-01-11] MEDS ORDERED: OLAN15TA3 PO (16:10)
[2022-01-11] MEDS ORDERED: CLON0.1T2 PO (16:10)
[2022-01-11] MEDS ORDERED: NAPR-1170 PO (16:10)
--- NOTE | 2022-01-11 16:31 | NUR ---
Pt. continues to sleep in bed at this time, she is laying on her left side, rr are even and unlabored.
--- NOTE | 2022-01-11 16:55 | NUR ---
Obtained orders from KATHI Montes De Oca to have pt's potassium level redrawn. Upon admission her K level was 3.0 and she was replaced with 40meq of K-DUR.
[2022-01-11] MEDS ORDERED: cloNIDine 0.1 mg tablet PO PRN (17:45)
[2022-01-11] MEDS ORDERED: albuterol 2.5 MG/3 ML nebule NEB PRN (17:45)
--- NOTE | 2022-01-11 17:58 | NUR ---
Pt. was compliant with blood re-draw with encouragement from staff. She returned back to sleep.
--- NOTE | 2022-01-11 19:04 | NUR ---
The patient is currently resting on her bed. She has refused to eat. One to one with the patient to assess severity of mental health symptoms incuding thought disorder and self harm risk. The patient is very disheveled and periodically sits up and makes bizarre statements, "am I ?" She also making paranoid statements that she doesn't feel safe. She knew what year it was but was unable to state what month it was. She denies methamphetamine use. She does say she is suicidal but unable to elaborate. "If I eat I'll get in trouble. My body is so stressed outf" Reports visual hallucinations of "lights" She described her mood as agiated and feels like she is on high alert. K+ increased to 3.9 after replacement given.
--- NOTE | 2022-01-11 20:44 | NUR ---
The patient appears to be sleeping
[2022-01-11] MEDS ORDERED: OLANZAPINE 5 MG TABLET PO SCH (21:00)
--- NOTE | 2022-01-11 22:06 | NUR ---
The patient appears to be sleeping
--- NOTE | 2022-01-12 00:21 | NUR ---
The patient appears to be sleeping
--- NOTE | 2022-01-12 01:28 | NUR ---
The patient appears to be sleeping
--- NOTE | 2022-01-12 03:17 | NUR ---
The patient appears to be sleeping
--- NOTE | 2022-01-12 05:07 | NUR ---
The patient appears to be sleeping
[2022-01-12 05:17] VITALS: BP 98/62
--- NOTE | 2022-01-12 06:25 | NUR ---
The patient appears to be sleeping
--- NOTE | 2022-01-12 08:06 | NUR ---
The patient was given her tray and stated, "I do't think it's safe to eat" and layed back down.
[2022-01-12] MEDS ORDERED: OLANZapine 2.5MG tablet PO ONE (09:10)
--- NOTE | 2022-01-12 09:29 | NUR ---
The patient became agitated during assessment with [facility]. She jumped off her bed and made bizarre statements. Security was called. Spoke with Falguni ARMENTA and she came over and assessed the patient and medications were ordered. The patient asked for pain medication as well and was given naprosyn. The patient does not want to be discharged from the hospital.
--- NOTE | 2022-01-12 10:27 | NUR ---
The patient is resting on her bed
--- NOTE | 2022-01-12 11:55 | NUR ---
The patient appears to be sleeping
--- NOTE | 2022-01-12 12:37 | NUR ---
The patient ate only a few bites of her lunch.
--- NOTE | 2022-01-12 15:09 | NUR ---
The patient appears to be sleeping
[2022-01-13] MEDS ORDERED: olanzapine 10mg tablet PO SCH (08:00)
== END 2022-01-12 15:52 ==
LOC: ER 11:45
DX: F15.959 Other stimulant use, unspecified with stimulant-induced psychotic disorder, unspecified (principal); Z20.822 Contact with and (suspected) exposure to COVID-19; F31.9 Bipolar disorder, unspecified; G89.29 Other chronic pain; M54.9 Dorsalgia, unspecified; F12.10 Cannabis abuse, uncomplicated; Z88.8 Allergy status to other drugs, medicaments and biological substances
CPT/HCPCS: 36415; 80053; 80164; 80178; 80305; 80320; 80329; 81003; 81025; 84132; 84443; 85025; 87811; 93005; 99285

== ENCOUNTER 2024-06-22 09:51 | Emergency (ER) | payer MEDICAID ==
[~2024-06-22] VITALS: Ht 157.5 cm; Wt 76.5 kg
[~2024-06-22 09:51] MED LIST changes: -ALBU2.5V7 NEB; -ALBU8HFA PO; -CLON0.1T2 PO; -NAPR-1115 PO; -NICO-907 BC; -OLAN15TA35 PO; -OLAN5TAB3 PO; -PALI117D IM
[2024-06-22 09:59] VITALS: BP 147/90; PULSE 78; RESP 18; TEMP 97.8; O2SAT 98
[2024-06-22] MEDS ORDERED: LIDO700A32 TOP (11:16)
[2024-06-22] MEDS: HYDROcodone/acetaminophen 5mg/325mg tablet PO ONE (11:38)
[2024-06-22] MEDS: cyclobenzaprine 10mg tablet PO ONE (11:39)
[2024-06-22] MEDS: dexamethasone sod phosphate 10mg/ml inj IM STA (11:39)
[2024-06-22] MEDS: ketorolac trometh 30MG/ML vial 30 MG/ML VIAL IM ONE (11:40)
== END 2024-06-22 11:58 | disposition home or self-care (01) ==
LOC: ER 09:51
DX: S39.012A Strain of muscle, fascia and tendon of lower back, initial encounter (principal); F31.9 Bipolar disorder, unspecified; F12.90 Cannabis use, unspecified, uncomplicated; F10.90 Alcohol use, unspecified, uncomplicated; F15.90 Other stimulant use, unspecified, uncomplicated; V89.2XXA Person injured in unspecified motor-vehicle accident, traffic, initial encounter; Y93.89 Activity, other specified; Y92.89 Other specified places as the place of occurrence of the external cause; Y99.8 Other external cause status
CPT/HCPCS: 96372; 99284; J1100; J1885

== ENCOUNTER 2024-07-25 12:00 | Inpatient (IN) | payer MEDICAID ==
[~2024-07-25] VITALS: Ht 157.5 cm; Wt 72.4 kg
[~2024-07-25 12:00] MED LIST changes: +ALBU2.5V7 NEB; +HYDR-3686 PO; -NO HOME MEDS; +PALI3TAB5 PO
[2024-07-25] MEDS ORDERED: loperamide 2mg capsule PO PRN (14:15)
[2024-07-25] MEDS ORDERED: mag hydrox/Alum hydrox/simeth 30ml oral suspension PO PRN (14:15)
[2024-07-25] MEDS ORDERED: acetaminophen 325mg tablet PO PRN (14:15)
[2024-07-25] MEDS ORDERED: magnesium hydroxide 30ml (MOM) UD suspension PO PRN (14:15)
[2024-07-25] MEDS: haloperidol lactate 5mg/ml inj ONE (14:24)
[2024-07-25] MEDS: diphenhydrAMINE 50 mg/ml inj ONE (14:24)
[2024-07-25] MEDS: LORazepam 2 mg/ml vial ONE (14:25)
[2024-07-25 14:51] VITALS: BP 98/62; PULSE 63; RESP 17; TEMP 96.9; O2SAT 100
[2024-07-25 16:11] VITALS: RESP 17; O2SAT 100
[2024-07-25] MEDS ORDERED: ALB0.5UD IH (16:41)
[2024-07-25] MEDS ORDERED: HYDR-3686 PO (16:41)
[2024-07-25] MEDS ORDERED: PALI3TAB5 PO (16:41)
[2024-07-25 19:00] VITALS: RESP 14; O2SAT 100
[2024-07-25 19:48] VITALS: BP 92/58; PULSE 85; RESP 14; TEMP 97.5; O2SAT 100
[2024-07-26 07:00] VITALS: RESP 16; O2SAT 95
[2024-07-26 08:00] VITALS: BP 87/53; PULSE 78; RESP 16; TEMP 97.6; O2SAT 95
[2024-07-26] MEDS: PALIPERIDONE 3 MG TAB.ER.24 PO SCH (08:29)
[2024-07-26] MEDS: acetaminophen 325mg tablet PO PRN (08:30)
[2024-07-26 11:27] LABS: THYROID STIMULATING HORMONE 0.88 ulU/ml (0.34-4.50)
[2024-07-26 12:09] LABS: HEMOGLOBIN A1C 5.3 % (4.5-6.2)
[2024-07-26] MEDS: hydrOXYzine 25 MG tablet PO PRN (12:54)
[2024-07-26 19:00] VITALS: BP 83/44; PULSE 81; RESP 14; TEMP 97.8; O2SAT 98
[2024-07-26 19:53] LABS: BASOPHILS % (AUTO) 0.3 % (0-1); EOSINOPHILS # (AUTO) 0.1 X10'3 (0-0.9); EOSINOPHILS % (AUTO) 1.4 % (0-6); HEMATOCRIT 40.5 % (35.0-45.0); HEMOGLOBIN 13.8 g/dl (12.0-16.0); LYMPHOCYTES # (AUTO) 1.5 X10'3 (1.1-4.8); LYMPHOCYTES % (AUTO) 16.1 % (21-51); MEAN CORPUSCULAR HEMOGLOBIN 27.2 PG (27.0-31.0); MEAN CORPUSCULAR HGB CONC 34.1 g/dL (33.0-36.5); MEAN CORPUSCULAR VOLUME 79.9 FL (78-98); MONOCYTES # (AUTO) 0.7 X10'3 (0-0.9); MONOCYTES % (AUTO) 7.6 % (2-12); NEUTROPHILS % (AUTO) 74.6 % (42-75); PLATELET COUNT 373 X10'3 (140-440); RED BLOOD COUNT 5.07 X10'6 (4.20-5.60); RED CELL DISTRIBUTION WIDTH 16.3 % (11.5-14.5); WHITE BLOOD COUNT 9.4 X10'3 (4.5-11.0)
[2024-07-26] MEDS: traMADol 50MG tablet PO ONE (20:18)
[2024-07-26] MEDS: traZODone 150mg tablet PO SCH (21:01)
[2024-07-27] MEDS: ibuprofen tablet 400 MG TABLET PO PRN (06:04)
[2024-07-27 07:00] VITALS: RESP 12; O2SAT 96
[2024-07-27 07:30] VITALS: BP 91/52; PULSE 77; RESP 12; TEMP 98.6; O2SAT 96
[2024-07-27 19:00] VITALS: BP 97/66; PULSE 88; RESP 16; TEMP 97.7; O2SAT 98
[2024-07-27] MEDS: traZODone 150mg tablet PO SCH (20:51)
[2024-07-28 07:00] VITALS: RESP 16; O2SAT 97
[2024-07-28] MEDS: albuterol 2.5 MG/3 ML nebule NEB PRN (07:16)
[2024-07-28 07:17] VITALS: PULSE 90; RESP 14; O2SAT 94
[2024-07-28 07:25] VITALS: PULSE 96; RESP 14
[2024-07-28 08:00] VITALS: BP 115/67; PULSE 106; RESP 16; TEMP 97.8; O2SAT 97
[2024-07-28] MEDS: PALIPERIDONE 3 MG TAB.ER.24 PO SCH (08:15)
[2024-07-28 19:00] VITALS: RESP 18; O2SAT 96
[2024-07-28 19:33] VITALS: BP 104/70; PULSE 105; RESP 18; TEMP 99.1; O2SAT 96
[2024-07-28] MEDS: benzonatate 100mg capsule PO ONE (20:36)
[2024-07-29 07:00] VITALS: RESP 12; O2SAT 97
[2024-07-29 07:30] VITALS: BP 99/68; PULSE 100; RESP 12; TEMP 98.2; O2SAT 97
[2024-07-29] MEDS: benzonatate 100mg capsule PO PRN (07:53)
[2024-07-29 19:00] VITALS: RESP 18; O2SAT 99
[2024-07-29 20:00] VITALS: BP 110/94; PULSE 106; RESP 18; TEMP 99.9; O2SAT 99
[2024-07-30 07:25] VITALS: BP 121/76; PULSE 107; RESP 16; TEMP 97.8; O2SAT 99
[2024-07-30 07:57] VITALS: RESP 16; O2SAT 99
[2024-07-30 19:00] VITALS: RESP 18; O2SAT 99
[2024-07-30 19:50] VITALS: PULSE 72; RESP 16; O2SAT 98
[2024-07-30 19:54] VITALS: BP 108/69; PULSE 72; RESP 18; TEMP 98.2; O2SAT 99
[2024-07-30] MEDS: mupirocin 2% ointment 22GM TP SCH (20:23)
[2024-07-31 04:22] VITALS: PULSE 77; RESP 14; O2SAT 98
[2024-07-31 04:31] VITALS: PULSE 72; RESP 14
[2024-07-31 07:29] VITALS: BP 114/76; PULSE 69; RESP 14; TEMP 97.9; O2SAT 99
[2024-07-31 08:16] VITALS: RESP 14; O2SAT 99
[2024-07-31 19:00] VITALS: RESP 16; O2SAT 98
[2024-07-31 20:00] VITALS: BP 98/67; PULSE 77; RESP 16; TEMP 97.5; O2SAT 98
[2024-07-31] MEDS: guaiFENesin/DM 10ml UD oral syrup PO PRN (20:49)
[2024-07-31] MEDS ORDERED: prazosin 1mg capsule PO SCH (21:00)
[2024-07-31] MEDS: prazosin 1mg capsule PO SCH (21:00)
[2024-08-01 07:58] VITALS: BP 92/60; PULSE 69; RESP 16; TEMP 98.3; O2SAT 100
[2024-08-01 08:00] VITALS: RESP 16; O2SAT 100
[2024-08-01] MEDS ORDERED: TRAZ150T78 PO (11:18)
== END 2024-08-01 12:56 | disposition home or self-care (01) | DRG 773 ==
LOC: UNDOADMIN 12:00 → ADULT MH 12:00
PROVIDERS: ADMIT Psychiatry & Neurology Psychiatry; ATTEND Psychiatry & Neurology Psychiatry
PROC: GZHZZZZ Group Psychotherapy (ICD-10-PCS; principal; 2024-07-25)
PROC: GZ56ZZZ Individual Psychotherapy, Supportive (ICD-10-PCS; 2024-07-25)
DX: F19.959 Other psychoactive substance use, unspecified with psychoactive substance-induced psychotic disorder, unspecified (principal); F11.90 Opioid use, unspecified, uncomplicated; F31.5 Bipolar disorder, current episode depressed, severe, with psychotic features; R45.851 Suicidal ideations; F15.90 Other stimulant use, unspecified, uncomplicated; F23 Brief psychotic disorder; G89.29 Other chronic pain; Z20.822 Contact with and (suspected) exposure to COVID-19; Z59.00 Homelessness unspecified; Z79.899 Other long term (current) drug therapy
CPT/HCPCS: 36415; 83036; 84145; 84443; 85025; 85651; 87070; 87075; 87077; 87081; 87186; 87502; 87503; 87811; 94640; 94760; 99285; J1200; J1630; J2060; Q0177

== ENCOUNTER 2024-08-06 14:20 | Emergency (ER) | payer MEDICAID ==
[~2024-08-06] VITALS: Ht 157.5 cm; Wt 71.7 kg
[~2024-08-06 14:20] MED LIST changes: -ALBU2.5V7 NEB; -HYDR-3686 PO; +TRAZ150T78 PO
[2024-08-06 14:24] VITALS: BP 121/85; PULSE 80; TEMP 98.1; O2SAT 98
[2024-08-06 15:31] VITALS: RESP 16
[2024-08-06] MEDS: ibuprofen tablet 400 MG TABLET PO ONE (15:31)
[2024-08-06] MEDS: cyclobenzaprine 10mg tablet PO ONE (15:31)
[2024-08-06] MEDS: HYDROcodone/acetaminophen 10/325mg tab PO ONE (15:31)
== END 2024-08-06 15:38 | disposition home or self-care (01) ==
LOC: ER 14:20
DX: M54.59 Other low back pain (principal); G89.29 Other chronic pain; M54.9 Dorsalgia, unspecified; F32.A Depression, unspecified; F12.90 Cannabis use, unspecified, uncomplicated; F15.90 Other stimulant use, unspecified, uncomplicated; F11.90 Opioid use, unspecified, uncomplicated; Z59.00 Homelessness unspecified; Z88.8 Allergy status to other drugs, medicaments and biological substances; Z79.899 Other long term (current) drug therapy
CPT/HCPCS: 99284

== ENCOUNTER 2024-08-19 20:41 | Emergency (ER) | payer MEDICAID ==
[~2024-08-19] VITALS: Ht 160 cm; Wt 70.5 kg
[2024-08-19 21:12] VITALS: TEMP 97.8
[2024-08-20] MEDS: hydrOXYzine 25 MG tablet PO ONE (01:51)
[2024-08-20 01:55] VITALS: BP 101/70; PULSE 64; RESP 18; O2SAT 98
== END 2024-08-20 01:58 | disposition home or self-care (01) ==
LOC: ER 20:41
DX: R07.89 Other chest pain (principal); G89.29 Other chronic pain; M54.9 Dorsalgia, unspecified; F32.A Depression, unspecified; F12.90 Cannabis use, unspecified, uncomplicated; F15.90 Other stimulant use, unspecified, uncomplicated; F11.90 Opioid use, unspecified, uncomplicated; Z59.00 Homelessness unspecified; Z88.8 Allergy status to other drugs, medicaments and biological substances; Z79.899 Other long term (current) drug therapy
CPT/HCPCS: 93005; 99283; Q0177

== ENCOUNTER 2024-09-25 00:27 | Emergency (ER) | payer MEDICAID ==
[~2024-09-25] VITALS: Ht 157.5 cm; Wt 69.7 kg
[~2024-09-25 00:27] MED LIST changes: +NALT50TA5 PO; -PALI3TAB5 PO; +SERT-434 PO; +TRAZ-251 PO; -TRAZ150T78 PO
[2024-09-25] MEDS ORDERED: traZODone 50mg tablet PO SCH (04:35)
[2024-09-25] MEDS: traZODone 50mg tablet PO ONE (04:48)
[2024-09-25 04:49] VITALS: BP 113/78; PULSE 84; RESP 19; TEMP 98.1; O2SAT 98
== END 2024-09-25 04:53 | disposition home or self-care (01) ==
LOC: ER 00:27
DX: G47.00 Insomnia, unspecified (principal); F31.9 Bipolar disorder, unspecified; F12.90 Cannabis use, unspecified, uncomplicated; F15.90 Other stimulant use, unspecified, uncomplicated; F11.90 Opioid use, unspecified, uncomplicated; Z88.2 Allergy status to sulfonamides; Z88.8 Allergy status to other drugs, medicaments and biological substances
CPT/HCPCS: 99283

== ENCOUNTER 2024-09-26 02:28 | Emergency (ER) | payer MEDICAID ==
[~2024-09-26] VITALS: Ht 157.5 cm; Wt 68.2 kg
[2024-09-26 02:31] VITALS: BP 97/65; PULSE 78; TEMP 98; O2SAT 98
[2024-09-26 02:50] VITALS: RESP 14
== END 2024-09-26 03:29 | disposition home or self-care (01) ==
LOC: ER 02:29
DX: F41.9 Anxiety disorder, unspecified (principal); F32.A Depression, unspecified; G89.29 Other chronic pain; M54.9 Dorsalgia, unspecified; Z59.00 Homelessness unspecified; Z88.2 Allergy status to sulfonamides; Z88.8 Allergy status to other drugs, medicaments and biological substances; Z79.899 Other long term (current) drug therapy; F15.90 Other stimulant use, unspecified, uncomplicated; F12.90 Cannabis use, unspecified, uncomplicated; F11.90 Opioid use, unspecified, uncomplicated
CPT/HCPCS: 99284

== ENCOUNTER 2024-10-13 05:08 | Emergency (ER) | payer MEDICAID ==
[~2024-10-13] VITALS: Ht 157.5 cm; Wt 68.3 kg
[2024-10-13 05:11] VITALS: BP 138/94; PULSE 99; RESP 15; TEMP 97.8; O2SAT 99
== END 2024-10-13 07:48 | disposition left against medical advice (07) ==
LOC: ER 05:09
DX: T78.49XA Other allergy, initial encounter (principal); L29.9 Pruritus, unspecified; Z88.8 Allergy status to other drugs, medicaments and biological substances; Z88.2 Allergy status to sulfonamides; Z53.21 Procedure and treatment not carried out due to patient leaving prior to being seen by health care provider; X58.XXXA Exposure to other specified factors, initial encounter

== ENCOUNTER 2024-10-16 | Emergency (ER) | payer MEDICAID ==
[~2024-10-16] VITALS: Ht 157.5 cm; Wt 73.8 kg
[2024-10-16 02:18] LABS: BASOPHILS % (AUTO) 0.4 % (0-1); EOSINOPHILS # (AUTO) 0.3 X10'3 (0-0.9); EOSINOPHILS % (AUTO) 2.4 % (0-6); HEMATOCRIT 37.9 % (35.0-45.0); HEMOGLOBIN 12.8 g/dl (12.0-16.0); LYMPHOCYTES # (AUTO) 3.1 X10'3 (1.1-4.8); LYMPHOCYTES % (AUTO) 26.8 % (21-51); MEAN CORPUSCULAR HEMOGLOBIN 27.4 PG (27.0-31.0); MEAN CORPUSCULAR HGB CONC 33.6 g/dL (33.0-36.5); MEAN CORPUSCULAR VOLUME 81.4 FL (78-98); MEAN PLATELET VOLUME 7.5 FL (7.4-10.4); MONOCYTES # (AUTO) 0.7 X10'3 (0-0.9); MONOCYTES % (AUTO) 6.3 % (2-12); NEUTROPHILS # (AUTO) 7.3 X10'3 (1.8-7.7); NEUTROPHILS % (AUTO) 64.1 % (42-75); PLATELET COUNT 370 X10'3 (140-440); RED BLOOD COUNT 4.66 X10'6 (4.20-5.60); RED CELL DISTRIBUTION WIDTH 16.4 % (11.5-14.5); WHITE BLOOD COUNT 11.4 X10'3 (4.5-11.0)
[2024-10-16 02:36] LABS: ALBUMIN 3.5 G/DL (3.4-5.0); ANION GAP 7 (8-16); BLOOD UREA NITROGEN 8 MG/DL (7-18); BUN/CREATININE RATIO 12.1 (10.0-20.0); CALCIUM 7.9 MG/DL (8.5-10.1); CHLORIDE 107 MMOL/L (99-107); CREATININE 0.66 MG/DL (0.40-0.90); ETHANOL < 10 MG/DL (<10); GLUCOSE 100 MG/DL (70-104); SODIUM 139 MMOL/L (135-145); THYROID STIMULATING HORMONE 1.99 ulU/ml (0.34-4.50); TOTAL CARBON DIOXIDE 24.7 MMOL/L (24-32); eCRCL 92 ML/MIN; eGFR > 90 ML/MIN
[2024-10-16] MEDS: potassium Cl 20 mEq SR tablet PO ONE (03:30)
[2024-10-16] MEDS ORDERED: LITH300T5 PO (05:28)
[2024-10-16] MEDS ORDERED: SULI200T97 PO (05:28)
[2024-10-16] MEDS ORDERED: BENZ0.5T44 PO (05:28)
[2024-10-16] MEDS ORDERED: OLAN10TA73 PO (05:28)
[2024-10-16 07:36] LABS: URINE HCG NEGATIVE (NEG)
[2024-10-16 07:38] LABS: BILIRUBIN,URINE NEGATIVE (Neg); CLARITY,URINE CLEAR (Clear); COLOR,URINE YELLOW (Yellow); GLUCOSE, URINE NEGATIVE (Neg); KETONES,URINE NEGATIVE (Neg); LEUKOCYTE ESTERASE ,URINE NEGATIVE (Neg); NITRITES, URINE NEGATIVE (Neg); OCCULT BLOOD,URINE NEGATIVE (Neg); PH,URINE 6.5 (4.8-8.0); PROTEIN,URINE NEGATIVE (Neg); UROBILINOGEN,URINE 0.2 E.U/dL (0.2-1.0)
[2024-10-16 07:39] LABS: UA COLLECTION TYPE URINAL
[2024-10-16 07:43] LABS: URINE AMPHETAMINE SCREEN POSITIVE (Neg); URINE BARBITUATE SCREEN NEGATIVE (Neg); URINE BENZODIAZEPINES SCREEN NEGATIVE (Neg); URINE CANNABINOID SCREEN POSITIVE (Neg); URINE COCAINE SCREEN NEGATIVE (Neg); URINE METHADONE SCREEN NEGATIVE (Neg); URINE OPIATE SCREEN POSITIVE (Neg); URINE PHENCYCLIDINE SCREEN NEGATIVE (Neg)
[2024-10-16 07:53] VITALS: BP 106/75; PULSE 76; RESP 16; TEMP 98; O2SAT 98
== END 2024-10-16 07:56 | disposition home or self-care (01) ==
LOC: ER
DX: R45.851 Suicidal ideations (principal); F31.9 Bipolar disorder, unspecified; Z20.822 Contact with and (suspected) exposure to COVID-19; F12.90 Cannabis use, unspecified, uncomplicated; F11.90 Opioid use, unspecified, uncomplicated; F15.10 Other stimulant abuse, uncomplicated; Z88.2 Allergy status to sulfonamides; Z88.8 Allergy status to other drugs, medicaments and biological substances
CPT/HCPCS: 36415; 80048; 80305; 80320; 81003; 81025; 84443; 85025; 87811; 99284

== ENCOUNTER 2024-10-18 16:21 | Emergency (ER) | payer MEDICAID ==
[~2024-10-18] VITALS: Ht 157.5 cm; Wt 73.8 kg
[~2024-10-18 16:21] MED LIST changes: +BENZ0.5T44 PO; +LITH300T5 PO; -NALT50TA5 PO; +OLAN10TA73 PO; -SERT-434 PO; +SULI200T97 PO; -TRAZ-251 PO
[2024-10-18 17:13] LABS: BASOPHILS % (AUTO) 0.3 % (0-1); EOSINOPHILS # (AUTO) 0.1 X10'3 (0-0.9); EOSINOPHILS % (AUTO) 1.6 % (0-6); HEMATOCRIT 40.7 % (35.0-45.0); HEMOGLOBIN 13.6 g/dl (12.0-16.0); LYMPHOCYTES # (AUTO) 2.4 X10'3 (1.1-4.8); MEAN CORPUSCULAR HEMOGLOBIN 27.4 PG (27.0-31.0); MEAN CORPUSCULAR HGB CONC 33.4 g/dL (33.0-36.5); MEAN CORPUSCULAR VOLUME 81.8 FL (78-98); MEAN PLATELET VOLUME 7.2 FL (7.4-10.4); MONOCYTES # (AUTO) 0.8 X10'3 (0-0.9); MONOCYTES % (AUTO) 8.2 % (2-12); NEUTROPHILS % (AUTO) 63.9 % (42-75); PLATELET COUNT 420 X10'3 (140-440); RED BLOOD COUNT 4.98 X10'6 (4.20-5.60); RED CELL DISTRIBUTION WIDTH 16.4 % (11.5-14.5); WHITE BLOOD COUNT 9.3 X10'3 (4.5-11.0)
[2024-10-18 17:30] LABS: ALANINE AMINOTRANSFERASE 26 U/L (12-78); ALBUMIN 3.7 G/DL (3.4-5.0); ALBUMIN/GLOBULIN RATIO 1.1 (1.1-1.5); ALKALINE PHOSPHATASE 104 IU/L (46-116); ANION GAP 13 (8-16); ASPARTATE AMINO TRANSFERASE 22 U/L (10-37); BILIRUBIN,TOTAL 0.3 MG/DL (0.1-1.0); BLOOD UREA NITROGEN 10 MG/DL (7-18); CALCIUM 8.5 MG/DL (8.5-10.1); CHLORIDE 106 MMOL/L (99-107); CREATININE 0.83 MG/DL (0.40-0.90); ETHANOL < 10 MG/DL (<10); GLUCOSE 113 MG/DL (70-104); LIPASE 17 U/L (16-77); POTASSIUM 3.2 MMOL/L (3.5-5.1); SODIUM 144 MMOL/L (135-145); TOTAL CARBON DIOXIDE 24.6 MMOL/L (24-32); TOTAL PROTEIN 7.1 G/DL (6.4-8.2); eCRCL 73 ML/MIN; eGFR 77 ML/MIN
[2024-10-18 18:24] LABS: THYROID STIMULATING HORMONE 0.74 ulU/ml (0.34-4.50)
[2024-10-18] MEDS: LORazepam 1 MG tablet PO ONE (19:47)
[2024-10-18] MEDS: LORazepam 2 mg/ml vial IM ONE (19:53)
[2024-10-18] MEDS: haloperidol lactate 5mg/ml inj IM ONE (19:56)
[2024-10-19 08:27] LABS: BILIRUBIN,URINE NEGATIVE (Neg); CLARITY,URINE CLEAR (Clear); COLOR,URINE YELLOW (Yellow); GLUCOSE, URINE NEGATIVE (Neg); KETONES,URINE NEGATIVE (Neg); LEUKOCYTE ESTERASE ,URINE TRACE (Neg); NITRITES, URINE NEGATIVE (Neg); OCCULT BLOOD,URINE NEGATIVE (Neg); PROTEIN,URINE NEGATIVE (Neg); URINE HCG NEGATIVE (NEG); UROBILINOGEN,URINE 0.2 E.U/dL (0.2-1.0)
[2024-10-19 08:29] LABS: UA COLLECTION TYPE CLN CATCH MIDSTREAM
[2024-10-19 08:41] LABS: BACTERIA,URINE 1+ /HPF (Neg); RBC,URINE 0-2 /HPF (0-2); SQUAMOUS EPITHELIAL CELL,UR FEW /LPF (FEW); TRANSITIONAL EPI CELLS,URINE FEW /HPF; URINE AMPHETAMINE SCREEN POSITIVE (Neg); URINE BARBITUATE SCREEN NEGATIVE (Neg); URINE BENZODIAZEPINES SCREEN NEGATIVE (Neg); URINE CANNABINOID SCREEN POSITIVE (Neg); URINE COCAINE SCREEN NEGATIVE (Neg); URINE METHADONE SCREEN NEGATIVE (Neg); URINE OPIATE SCREEN NEGATIVE (Neg); URINE PHENCYCLIDINE SCREEN NEGATIVE (Neg); WBC,URINE 0-4 /HPF (0-4)
[2024-10-19] MEDS: loperamide 2mg capsule PO ONE (12:54)
[2024-10-19] MEDS: OLANZapine 2.5MG tablet PO PRN (16:40)
[2024-10-19 19:00] VITALS: BP 92/69; PULSE 73; RESP 14; O2SAT 100
[2024-10-20 00:46] VITALS: TEMP 98.9
== END 2024-10-19 20:10 ==
LOC: ER 16:21
DX: F99 Mental disorder, not otherwise specified (principal); R45.851 Suicidal ideations; F15.90 Other stimulant use, unspecified, uncomplicated; Z20.822 Contact with and (suspected) exposure to COVID-19; Z88.2 Allergy status to sulfonamides; Z88.8 Allergy status to other drugs, medicaments and biological substances
CPT/HCPCS: 36415; 80053; 80305; 80320; 81001; 81025; 83690; 84443; 85025; 87088; 87811; 96372; 99285; J1630; 99284

== ENCOUNTER → 2024-11-04 | Emergency (ER) | payer MEDICAID ==
[~2024-11-04] VITALS: Ht 157.5 cm; Wt 68.5 kg
[2024-11-04 00:43] VITALS: BP 137/88; PULSE 130; RESP 16; TEMP 96.9; O2SAT 98
--- NOTE | 2024-11-04 00:56 | ELECTROCARDIOGRAPH REPORT ---
[facility] Test Date: 2024-11-04 Test Time: 00:54:44 Pat Name: STEVIE RODRIGUEZ Department: [facility]- Patient ID: [facility]-[id number] Room: Gender: F Music Publisher: DONAVON MAHONEY : 1985 Requested By: AYAKA SERRANO Order Number: [id number] Reading MD: Dr. Ayaka Serrano Measurements Intervals [place] Rate: 119 P: 47 WY: 156 QRS: 35 QRSD: 96 T: 14 QT: 338 QTc: 476 Interpretive Statements Sinus tachycardia Ventricular premature complex Aberrant conduction of SV complex(es) Probable left atrial enlargement S1,S2,S3 pattern RSR' in V1 or V2, probably normal variant Borderline T wave abnormalities Electronically Signed On 11-04-2024 3:23:[address] Ayaka Serrano Please click the below link to view image of tracing.
[2024-11-04 01:23] LABS: BASOPHILS % (AUTO) 0.3 % (0-1); EOSINOPHILS % (AUTO) 0.1 % (0-6); HEMATOCRIT 41.7 % (35.0-45.0); HEMOGLOBIN 14.3 g/dl (12.0-16.0); LYMPHOCYTES # (AUTO) 1.6 X10'3 (1.1-4.8); MEAN CORPUSCULAR HEMOGLOBIN 28.2 PG (27.0-31.0); MEAN CORPUSCULAR HGB CONC 34.2 g/dL (33.0-36.5); MEAN CORPUSCULAR VOLUME 82.4 FL (78-98); MEAN PLATELET VOLUME 7.3 FL (7.4-10.4); MONOCYTES # (AUTO) 0.9 X10'3 (0-0.9); MONOCYTES % (AUTO) 6.3 % (2-12); NEUTROPHILS # (AUTO) 10.9 X10'3 (1.8-7.7); NEUTROPHILS % (AUTO) 81.3 % (42-75); PLATELET COUNT 281 X10'3 (140-440); RED BLOOD COUNT 5.06 X10'6 (4.20-5.60); WHITE BLOOD COUNT 13.5 X10'3 (4.5-11.0)
[2024-11-04 01:27] LABS: ALBUMIN 4.2 G/DL (3.4-5.0); ANION GAP 9 (8-16); BLOOD UREA NITROGEN 9 MG/DL (7-18); BUN/CREATININE RATIO 10.6 (10.0-20.0); CALCIUM 9.1 MG/DL (8.5-10.1); CHLORIDE 104 MMOL/L (99-107); CREATININE 0.85 MG/DL (0.40-0.90); GLUCOSE 122 MG/DL (70-104); POTASSIUM 3.5 MMOL/L (3.5-5.1); SODIUM 138 MMOL/L (135-145); TOTAL CARBON DIOXIDE 25.3 MMOL/L (24-32); eCRCL 72 ML/MIN; eGFR 75 ML/MIN
--- NOTE | 2024-11-04 02:06 | RADIOLOGY REPORT ---
Clinical History tachycardia Comparison None Technique: frontal chest x-ray Without Contrast STEVIE RODRIGUEZ, [id number] Findings: Heart - normal lungs - no consolidation. bones - no acute fracture. Other- Impression: 1. No acute cardiopulmonary disease This report was electronically signed by Pedro Jose MD on 11/04/2024 2:04 AM.
== END | disposition left against medical advice (07) ==
LOC: ER 00:41
DX: L02.416 Cutaneous abscess of left lower limb (principal); L02.415 Cutaneous abscess of right lower limb; I49.8 Other specified cardiac arrhythmias; Z53.21 Procedure and treatment not carried out due to patient leaving prior to being seen by health care provider
CPT/HCPCS: 36415; 71045; 80048; 83605; 84145; 85025; 87040; 93005

== ENCOUNTER 2024-11-25 23:13 | Emergency (ER) | payer MEDICAID ==
[~2024-11-25 23:13] MED LIST changes: +SERT-153 PO
== END 2024-11-26 01:15 | disposition left against medical advice (07) ==
LOC: EDBD → ER 23:14 → MERGE 23:14 → ER 11-26 01:15
DX: Z00.8 Encounter for other general examination (principal); Z88.2 Allergy status to sulfonamides; Z88.8 Allergy status to other drugs, medicaments and biological substances; Z53.21 Procedure and treatment not carried out due to patient leaving prior to being seen by health care provider

== ENCOUNTER 2024-12-05 20:28 | Emergency (ER) | payer MEDICAID ==
[~2024-12-05] VITALS: Ht 157.5 cm; Wt 65.3 kg
--- NOTE | 2024-12-05 22:47 | Physician Documentation ---
History of Present Illness General Chief Complaint: Nausea Stated Complaint: NAUSEA/PAIN Time Seen by MD: 21:51 Primary Medical Doctor: NONE Mode of Arrival: POV History of Present Illness Initial Comments This 38-year-old female presented to the emergency department initially reporting nausea to triage nurse, I entered the room for history and physical and found patient is sleeping, upon waking the patient up I asked her what brought her to the emergency department she reported her sister brought her to the emergency department, asked her how we could help her she reported she needed soap. Again asked the patient how we could help her and if there was any other thing that she was concerned about and she said no the just the soap. Patient is reporting no symptoms or acute concerns. Medication Reconciliation Allergies: Coded Allergies: Sulfa (Sulfonamide Antibiotics) (Verified Allergy, Unknown, rash, 11/04/24) bupropion (Verified Allergy, Unknown, rash, 11/04/24) olanzapine (Verified Adverse Reaction, Mild, Itchy Rash, 11/16/24) Scheduled Benztropine Mesylate (Benztropine Mesylate), 1 TAB PO BID Meridian Carbonate (Meridian Carbonate), 3 TAB PO DAILY Sertraline HCl (Sertraline HCl), 3 TAB PO DAILY Scheduled PRN Olanzapine (Olanzapine), 1 TAB PO QPM PRN for agitation Sulindac* (Clinoril*), 1 TAB PO BID PRN for pain, (Reported) Past Medical History Past Medical History: Chronic Back Pain, Bipolar, Depression, Psychosis Past Surgical History: no surgical history Other Past Family History: NONCONTRIBUTORY Smoking: Non-Smoker Alcohol Use: Sober Drug Use: marijuana, methamphetamine, heroin Lives In: Homeless Review of Systems ROS As stated above in the HPI, otherwise all systems are reviewed and negative. Physical Exam Physical Exam Vital Signs: Temperature: 98.2, Source: Temporal, Heart Rate: 67, Respiratory Rate: 14, BP: 99/61, Pulse Oximetry: 98, Weight: 65.300 Oxygen Flow Rate: 0 Physical Exam VITALS: Reviewed and as above. GENERAL: Alert, nontoxic appearing, no apparent distress. RESPIRATORY: No increased work of breathing, no respiratory distress, speaking in full clear sentences Progress Results/Orders Results/Orders Vital Signs 12/05/24 12/05/24 12/05/24 12/05/24 20:43 21:55 22:01 23:03 Temp 98.2 98.2 Pulse 93 67 105 Resp 16 14 16 B/P (MAP) 114/74 99/61 (74) 99/60 Pulse Ox 98 98 100 O2 Flow Rate 0 0 Medical Decision Making Findings This 38-year-old female presented to the emergency department reporting feelings of nausea due to foul smells to triage nurse, however on my interview with the patient, she was sleeping and had to be awoken, she reported no acute symptoms or concerns only requesting soap, I asked her on three separate times how we could help her and each time she responded only that she needed soap I asked her if she had any other concerns or complaints and and she repeatedly said no. As patient is reporting no acute symptoms or concerns and only requesting soap there was no evidence of an emergent medical condition and patient is appropriate for discharge. Differential Diagnosis Malingering, homeless, hungry, Departure Time of Disposition: 22:46 Disposition: 01 HOME / SELF CARE / HOMELESS Impression: Primary Impression: General medical exam Condition: Improved Additional Instructions: Please follow up with your primary care provider in the next few days. Please return to the emergency department for any new or worsening concerning symptoms. Referrals: NO PRIMARY CARE PROVIDER (PCP) Education Educated: Patient Educated regarding: diagnosis, treatment, prognosis, need for follow up Signature Scribe Signature: No scribe Attestation: The note accurately reflects work and decisions made by me.FELIPE Anderson 12/06/24 01:15 GASPER PARKINSON Dec 05, 2024 22:47
[2024-12-05 23:03] VITALS: BP 99/60; PULSE 105; RESP 16; TEMP 98.2; O2SAT 100
== END 2024-12-05 23:06 | disposition home or self-care (01) ==
LOC: ER 20:29
DX: Z00.8 Encounter for other general examination (principal); R11.0 Nausea; F31.9 Bipolar disorder, unspecified; F12.90 Cannabis use, unspecified, uncomplicated; F15.90 Other stimulant use, unspecified, uncomplicated; F11.90 Opioid use, unspecified, uncomplicated; Z88.2 Allergy status to sulfonamides; Z88.8 Allergy status to other drugs, medicaments and biological substances
CPT/HCPCS: 99281